=== PATIENT | female | born 1950 | race Caucasian/White ===

== ENCOUNTER 2018-07-02 13:50 | Inpatient (IN) | payer MEDICARE, OTHER ==
[~2018-07-02] VITALS: Ht 157.5 cm; Wt 87.3 kg
--- NOTE | 2018-07-02 14:16 | EKG ---
[address] [address] Test Date: 2018-07-02 Test Time: 14:03:06 Pat Name: ALLAN MORRISON Department: Room: Gender: F Company Secretary: : 1950 Requested By: XU ROSARIO Order Number: [id number] Reading MD: Karson Borjas MD Measurements Intervals [place] Rate: 81 P: 54 ID: [id number] QRS: 29 QRSD: 80 T: 53 QT: 380 QTc: 442 Interpretive Statements SR Electronically Signed On 07-05-2018 11:25:55 CDT by Karson Borjas MD
--- NOTE | 2018-07-02 14:21 | PHYS DOC ---
Past History Past Medical History: Cancer, COPD, Hypertension, Renal Disease Past Surgical History: No Surgical History Alcohol Use: None Drug Use: None Adult General Chief Complaint Chief Complaint: WEAKNESS/GENERALIZED HPI HPI Patient is a 67 year old female who brought in by EMS because of syncopal episode. Patient states she was going to stand up and then became dizzy and doesn't remember if she had the syncope but her brother states she had loss of consciousness for a short time. Patient denies chest pain, palpitation, focal neuro deficit, nausea and vomiting before after syncope. Patient denies history of syncope but states yesterday she had a near syncopal episode while she was leaving [facility]. Patient had history of metastatic ovarian cancer and currently taking chemotherapy with the last chemotherapy one week ago. Patient states she did go to [facility] and he did not do infusion because of elevation of kidney function. Patient complaining of shortness of breath after her syncopal episode that was like her usual condition and EMS reported that she was on 100% O2 sat on 3 L of home oxygen. Patient denies history of DVT and PE but currently taking Lovenox. Patient complaining of generalized weakness and dizziness without fever and chills. Review of Systems Review of Systems Constitutional: Denies fever or chills [] Eyes: Denies change in visual acuity, redness, or eye pain [] HENT: Denies nasal congestion or sore throat [] Respiratory: Denies cough or shortness of breath [] Cardiovascular: No additional information not addressed in HPI [] GI: Denies abdominal pain, nausea, vomiting, bloody stools or diarrhea [] : Denies dysuria or hematuria [] Musculoskeletal: Denies back pain or joint pain [] Integument: Denies rash or skin lesions [] Neurologic: Denies headache, focal weakness or sensory changes [] Endocrine: Denies polyuria or polydipsia [] All other systems were reviewed and found to be within normal limits, except as documented in this note. Allergies Allergies Allergies Coded Allergies Type Severity Reaction Last Updated Verified No Known Drug Allergies 07/02/18 No Physical Exam Physical Exam Constitutional: Well developed, well nourished, no acute distress, non-toxic appearance. [] HENT: Normocephalic, atraumatic, bilateral external ears normal, oropharynx moist, no oral exudates, nose normal. [] Eyes: PERRLA, EOMI, conjunctiva normal, no discharge. [] Neck: Normal range of motion, no tenderness, supple, no stridor. [] Cardiovascular:Heart rate regular rhythm, no murmur [] Lungs & Thorax: Bilateral breath sounds clear to auscultation [] Abdomen: Bowel sounds normal, soft, no tenderness, no masses, no pulsatile masses. [] Skin: Warm, dry, no erythema, no rash. [] Back: No tenderness, no CVA tenderness. [] Extremities: No tenderness, no cyanosis, no clubbing, ROM intact, bilateral lower extremity 2+ edema Neurologic: Alert and oriented X 3, normal motor function, normal sensory function, no focal deficits noted. [] Psychologic: Affect normal, judgement normal, mood normal. [] Current Patient Data Vital Signs Vital Signs Date Time Temp Pulse Resp B/P (MAP) Pulse Ox O2 Delivery O2 Flow Rate FiO2 07/02/18 14:04 97.8 83 18 100 Nasal Cannula 3.0 EKG EKG EKG interpreted by me. EKG at 14 or 2 showed normal sinus rhythm at rate of 81, no acute ST and T-wave abnormalities Radiology/Procedures Radiology/[place] [address] IMAGING REPORT Signed PATIENT: ALLAN MORRISON ACCOUNT: [id number] : 1950 LOCATION: ER AGE: 67 SEX: F EXAM STATUS: REG ER ORD. PHYSICIAN: XU ROSARIO MD REASON: syncope PROCEDURE: PORTABLE CHEST 1V Exam: AP portable chest History: Syncopal episode. Comparison: January 02, 2010. Findings: Patient is rotated. The heart and mediastinal structures are within normal limits for size. Lungs are without infiltrate. No pleural effusion or pneumothorax is identified. Right chest port and catheter have been placed with tip the catheter projecting at the atriocaval junction. Impression: 1. No acute cardiopulmonary process. Electronically signed by: Jhonny Corona MD (07/02/2018 2:32 PM) [place] [id number] DICTATED AND SIGNED BY: JHONNY CORONA MD DATE: 07/02/18 2220 CC: XU ROSARIO MD; PCP,NO ~ [address] [id number] IMAGING REPORT Signed PATIENT: ALLAN MORRISON ACCOUNT: [id number] : 1950 LOCATION: ER AGE: 67 SEX: F EXAM STATUS: REG ER ORD. PHYSICIAN: XU ROSARIO MD REASON: syncope PROCEDURE: CT HEAD WO CONTRAST CT HEAD WO CONTRAST Indication: SYNCOPAL EPISODE Exposure: One or more of the following individualized dose reduction techniques were utilized for this examination: 1. Automated exposure control 2. Adjustment of the mA and/or kV according to patient size 3. Use of iterative reconstruction technique. Comparison: None are available. Contrast: None FINDINGS: Posterior fossa is unremarkable. No evidence of acute intracranial hemorrhage or abnormal extra-axial fluid collection. No evidence of mass effect or midline shift. Mild prominence of ventricles and sulci compatible with mild atrophy. Mild arterial calcifications compatible with atherosclerotic disease. Subtle white matter hypodensity, is nonspecific but likely due to chronic small vessel ischemic disease. Visualized orbits are unremarkable. Only the upper most aspect of the maxillary sinuses are included, demonstrating opacification of the left maxillary sinus. No acute calvarial abnormality. Impression: 1. No evidence of acute intracranial hemorrhage or mass effect. 2. Partially visualized left maxillary sinus disease, nonspecific. 3. Chronic intracranial findings are detailed above. Electronically signed by: Jhonny Sevilla MD (07/02/2018 2:22 PM) [facility] Course & Med Decision Making Course & Med Decision Making Pertinent Labs and Imaging studies reviewed. (See chart for details) Evaluation of patient in ER showed 67-year-old female patient brought in by EMS because of syncopal episode and complaining of weakness and shortness of breath. Patient had 2+ lower extremity edema without neurovascular deficit. Labs showed elevation of lactic acid is 2.5 with white count of 2.0 without source of infection. Patient was started on Rocephin. IV fluid was not started because patient had a stable blood pressure. Dragon Disclaimer Dragon Disclaimer This electronic medical record was generated, in whole or in part, using a voice recognition dictation system. Departure Departure: Impression: Primary Impression: Syncope Additional Impressions: Sepsis Leukopenia Anemia Ovarian cancer Renal insufficiency CHF (congestive heart failure) Disposition: 09 ADMITTED INPATIENT (at 1544) Admitting Physician: Other (Dr. Fredrick Sherman accepted admission at 1542) Condition: GUARDED Referrals: PCP,NO (PCP) Problem Qualifiers XU ROSARIO MD Jul 02, 2018 14:21
--- NOTE | 2018-07-02 14:25 | RAD ---
CT HEAD WO CONTRAST Indication: SYNCOPAL EPISODE Exposure: One or more of the following individualized dose reduction techniques were utilized for this examination: 1. Automated exposure control 2. Adjustment of the mA and/or kV according to patient size 3. Use of iterative reconstruction technique. Comparison: None are available. Contrast: None FINDINGS: Posterior fossa is unremarkable. No evidence of acute intracranial hemorrhage or abnormal extra-axial fluid collection. No evidence of mass effect or midline shift. Mild prominence of ventricles and sulci compatible with mild atrophy. Mild arterial calcifications compatible with atherosclerotic disease. Subtle white matter hypodensity, is nonspecific but likely due to chronic small vessel ischemic disease. Visualized orbits are unremarkable. Only the upper most aspect of the maxillary sinuses are included, demonstrating opacification of the left maxillary sinus. No acute calvarial abnormality. Impression: 1. No evidence of acute intracranial hemorrhage or mass effect. 2. Partially visualized left maxillary sinus disease, nonspecific. 3. Chronic intracranial findings are detailed above. Electronically signed by: Jhonny Sevilla MD (07/02/2018 2:22 PM) [facility]
--- NOTE | 2018-07-02 14:35 | RAD ---
Exam: AP portable chest History: Syncopal episode. Comparison: January 02, 2010. Findings: Patient is rotated. The heart and mediastinal structures are within normal limits for size. Lungs are without infiltrate. No pleural effusion or pneumothorax is identified. Right chest port and catheter have been placed with tip the catheter projecting at the atriocaval junction. Impression: 1. No acute cardiopulmonary process. Electronically signed by: Jhonny Loaiza MD (07/02/2018 2:32 PM) [place] [id number]
[2018-07-02 14:58] LABS: BASO % 1 % (0-3); EOS % 1 % (0-3); HEMATOCRIT 29.2 % (36.0-47.0); HEMOGLOBIN 9.8 g/dL (12.0-15.5); LYMPH # 0.9 x10^3/uL (1.0-4.8); LYMPH % 41 % (24-48); MEAN CORPUSCULAR HEMOGLOBIN 33 pg (25-35); MEAN CORPUSCULAR HGB CONC 34 g/dL (31-37); MEAN CORPUSCULAR VOLUME 97 fL (79-100); MONO # 0.1 x10^3/uL (0.0-1.1); MONO % 6 % (0-9); NEUT # 1.1 x10^3uL (1.8-7.7); NEUT % 52 % (31-73); PLATELET COUNT 119 x10^3/uL (140-400); RED CELL DISTRIBUTION WIDTH 22.7 % (11.5-14.5); WHITE BLOOD COUNT 2.1 x10^3/uL (4.0-11.0)
[2018-07-02 15:32] LABS: % BANDS 4 % (0-9); % EOS 1 % (0-5); % LYMPHS 38 % (24-48); % MONOS 5 % (0-10); % SEGS 52 % (35-66)
[2018-07-02 15:33] LABS: HYPOCHROMIA SLIGHT; PLT ESTIMATE DECREASED (ADEQUATE)
[2018-07-02 15:34] LABS: MICROCYTOSIS SLIGHT; OVALOCYTES FEW; POLYCHROMASIA SLIGHT; TEAR DROP CELLS FEW; TOXIC GRANULATION PRESENT
[2018-07-02 15:38] LABS: ANISOCYTOSIS MOD
[2018-07-02 15:56] LABS: ALBUMIN 4.1 g/dL (3.4-5.0); ALBUMIN/GLOBULIN RATIO 1.1 (1.0-1.7); CALCIUM 9.2 mg/dL (8.5-10.1); CREATININE 1.5 mg/dL (0.6-1.0); GFR 34.5; POTASSIUM 4.3 mmol/L (3.5-5.1); TOTAL BILIRUBIN 0.5 mg/dL (0.2-1.0); TOTAL PROTEIN 7.9 g/dL (6.4-8.2)
[2018-07-02] MEDS ORDERED: cefTRIAXone SODIUM 1 GM VIAL IV ONE (15:59)
[2018-07-02] MEDS ORDERED: IV NORMAL SALINE 50ML 50 ML ONE (15:59)
[2018-07-02 16:15] LABS: BILIRUBIN,URINE NEG (NEG); CLARITY,URINE CLEAR; COLOR,URINE YELLOW; GLUCOSE,URINE NEG (NEG); NITRITE,URINE NEG (NEG); UROBILINOGEN,URINE 0.2 mg/dL (0.2 mg/dL)
[2018-07-02 16:16] LABS: BACTERIA,URINE 0 /HPF (0-FEW); HYALINE CASTS, URINE FEW /HPF; SQUAMOUS EPITHELIAL CELL,UR FEW /LPF; WBC,URINE OCC /HPF (0-4)
[2018-07-02 18:23] VITALS: BP 110/69
[2018-07-02] MEDS ORDERED: LISI10TA2 PO (18:53)
[2018-07-02] MEDS ORDERED: METO50TA6 PO (18:53)
[2018-07-02] MEDS ORDERED: FURO80TA72 PO (18:53)
[2018-07-02] MEDS ORDERED: IV NORMAL SALINE 1,000ML 1,000 ML IV SCH ×2 (19:00)
[2018-07-02 19:35] VITALS: BP 92/61
[2018-07-02] MEDS ORDERED: ACETAMINOPHEN 325 MG TABLET PO PRN (20:45)
[2018-07-02] MEDS ORDERED: PROCHLORPERAZINE 5 MG TABLET. PO PRN (21:15)
[2018-07-02] MEDS ORDERED: ONDANSETRON ODT 4 MG TAB.RAPDIS PO PRN (21:15)
[2018-07-02] MEDS: LISINOPRIL 10 MG TABLET PO SCH (21:46)
[2018-07-02] MEDS: TEMAZEPAM 15 MG CAPSULE PO SCH (21:46)
[2018-07-02] MEDS: METOPROLOL TART IMMED RELEASE 50 MG TABLET PO SCH (21:46)
[2018-07-02] MEDS: ENOXAPARIN ** NOTE DOSE ** SYRINGE SQ SCH (21:47)
[2018-07-02] MEDS: sulfaSALAzine 500 MG TABLET PO SCH (21:52)
[2018-07-03] VITALS (9 sets, daily range): BP systolic 89–120; BP diastolic 51–75
[2018-07-03 06:43] LABS: BASO % 1 % (0-3); EOS % 0 % (0-3); HEMATOCRIT 23.6 % (36.0-47.0); HEMOGLOBIN 7.9 g/dL (12.0-15.5); LYMPH # 0.7 x10^3/uL (1.0-4.8); LYMPH % 48 % (24-48); MEAN CORPUSCULAR HEMOGLOBIN 33 pg (25-35); MEAN CORPUSCULAR HGB CONC 34 g/dL (31-37); MEAN CORPUSCULAR VOLUME 98 fL (79-100); MONO # 0.1 x10^3/uL (0.0-1.1); MONO % 8 % (0-9); NEUT # 0.6 x10^3uL (1.8-7.7); NEUT % 43 % (31-73); PLATELET COUNT 94 x10^3/uL (140-400); RED BLOOD COUNT 2.41 x10^6/uL (3.50-5.40); RED CELL DISTRIBUTION WIDTH 22.5 % (11.5-14.5)
[2018-07-03 06:47] LABS: WHITE BLOOD COUNT 1.5 x10^3/uL (4.0-11.0)
[2018-07-03 06:50] LABS: ALBUMIN 2.9 g/dL (3.4-5.0); CALCIUM 8.1 mg/dL (8.5-10.1); GFR 55.1; POTASSIUM 4.5 mmol/L (3.5-5.1); TOTAL BILIRUBIN 0.2 mg/dL (0.2-1.0); TOTAL PROTEIN 5.7 g/dL (6.4-8.2)
[2018-07-03] MEDS: ASPIRIN 81 MG TAB.CHEW PO SCH (08:55)
[2018-07-03] MEDS: SPIRONOLACTONE 25 MG TABLET PO SCH (08:56)
[2018-07-03] MEDS: POLYETHYLENE GLYCOL 3350 17 GM PACKET. PO SCH (08:59)
[2018-07-03] MEDS: METOPROLOL TART IMMED RELEASE 50 MG TABLET PO SCH ×2 (08:59→22:27)
[2018-07-03] MEDS: ALLOPURINOL 100 MG TABLET. PO SCH (08:59)
[2018-07-03] MEDS ORDERED: DEXAMETHASONE 4 MG TABLET PO SCH (09:00)
[2018-07-03] MEDS: ENOXAPARIN ** NOTE DOSE ** SYRINGE SQ SCH ×2 (09:00→22:27)
[2018-07-03] MEDS: POTASSIUM CHLORIDE 20 MEQ TABLET.ER. PO SCH ×2 (09:03→17:25)
[2018-07-03] MEDS: sulfaSALAzine 500 MG TABLET PO SCH ×2 (09:14→22:12)
[2018-07-03] MEDS: LISINOPRIL 10 MG TABLET PO SCH ×2 (11:45→22:26)
[2018-07-03] MEDS: ISOSORBIDE MONONITRATE ER 30 MG TAB.ER.24H PO SCH (11:46)
[2018-07-03] MEDS: TEMAZEPAM 15 MG CAPSULE PO SCH (22:13)
--- NOTE | 2018-07-03 22:29 | PDOC1 ---
History and Physical Date of Admission: Date of Admission: 07/03/18 Chief Complaint: Chief Complain: syncope ProblemList: Anemia CHF (congestive heart failure) Leukopenia Ovarian cancer Renal insufficiency Sepsis Syncope Source: Source: Caregiver, Chart review, Patient HPI: HPI: 67/F to [facility] ED with reported syncope. Patient with reported history of metastatic ovarian CA follows with [facility] started new infusion therapy . States she had near-syncopal episode standing up from commode, and on Thursday reported witnessed syncope (patient's brother, not available) patient reportedly tried to stand up at home from armchair became dizzy and fell back into chair denies syncope but brother reportedly stated she was unresponsive few moments. No seizure activity/ incontinence/seizure activity/DORSEY/postictal, has metastatic ovarian cancer follows [facility] started "new infusion therapy" as well no other details. Scheduled for chemo Thursday not done due to low creatinine. Vague historian, follows Dr Velazco[facility] uncertain of recent testing denies recent echo. ED workup with normal EKG/CXR/CT head aside from mild left maxillary sinusitis she was admitted for further workup/observation. Patient reportedly sharpe-cultured, started on rocephin as WBC initially 2.1/Hb 9.8 /Plt 119, after NS hydration WBC 1.5/Hb 7.9/Plt 94 dilutional but still neutropenic and precautions initiated. UA neg, BUN 45/Cr 1.5 normalized after hydration, orthostatics negative. Albumin 2.9, and no thyroid history TSH 6.151. I find her sitting in bed watching TV no distress, continues to deny CP/ dyspnea but remains vague historian doesn't know what cancer treatments/cardiac workup. Past Medical History: Cardiovascular: HTN Pulmonary: COPD Heme/Onc: Cancer (metastatic ovarian) Renal/: Chronic renal insuff Social History: Smoke: No Alcohol: none Drugs: None Allergies: Allergies: Coded Allergies: No Known Drug Allergies (Unverified , 07/02/18) Current Medications: Current Medications: Current Medications Medications (Trade) Dose Ordered Sig/Lady Start Time Stop Time Status Last Admin Dose Admin Acetaminophen (Tylenol) 1,000 mg PRN TID PRN 07/02/18 20:45 Allopurinol (Zyloprim) 100 mg DAILY 07/03/18 09:00 07/03/18 08:59 100 MG Aspirin (Children'S Aspirin) 81 mg [id number] 07/03/18 08:00 07/03/18 08:55 81 MG Ceftriaxone Sodium 1 gm/ Sodium Chloride 50 ml @ 100 mls/hr 1X ONCE 07/02/18 15:45 07/02/18 16:14 DC 07/02/18 15:00 100 MLS/HR Ceftriaxone Sodium (Rocephin) 1 gm STK-MED ONCE 07/02/18 15:59 07/02/18 16:00 DC Dexamethasone (Decadron) 32 mg DAILY 07/03/18 09:00 Enoxaparin Sodium (Lovenox 100mg Syringe) 90 mg Q12HR 07/02/18 21:00 07/03/18 09:00 90 MG Isosorbide Mononitrate (Imdur) 60 mg DAILY 07/03/18 09:00 07/03/18 11:46 60 MG Lisinopril (Prinivil) 10 mg BID 07/02/18 21:00 07/03/18 11:45 10 MG Metoprolol Tartrate (Lopressor) 50 mg BID 07/02/18 21:00 07/03/18 08:59 50 MG Ondansetron HCl (Zofran Odt) 4 mg PRN Q8HRS PRN 07/02/18 21:15 Polyethylene Glycol (miraLAX) 17 gm DAILY 07/03/18 09:00 07/03/18 08:59 17 GM Potassium Chloride (Klor-Con) 20 meq BIDWMEALS 07/03/18 08:00 07/03/18 17:25 20 MEQ Prochlorperazine Maleate (Compazine) 10 mg PRN Q6HRS PRN 07/02/18 21:15 Sodium Chloride 1,000 ml @ 150 mls/hr Q6H40M 07/02/18 19:00 07/03/18 01:39 DC 07/03/18 00:32 150 MLS/HR Spironolactone (Aldactone) 25 mg DAILY 07/03/18 09:00 07/03/18 08:56 25 MG Sulfasalazine (Azulfidine) 500 mg BID 07/02/18 21:00 07/03/18 09:14 500 MG Temazepam (Restoril) 15 mg QHS 07/02/18 21:00 07/02/18 21:46 15 MG ROS: ROS: Constitutional: No fever or chills, + appropriate wt loss with chemo Eyes: No eye pain or blurred vision Skin: No rash or itching Cardiovascular: No chest pain, palpitations, dyspnea on exertion other than HPI/ PMH Respiratory: No cough or difficulty breathing Gastrointestinal: No nausea, vomiting, or abdominal pain Neurologic: No headaches or focal neurologic deficits Endocrine: No heat or cold intolerance Genitourinary: No incontinence or hematuria Musculoskeletal: No joint pain or swelling Lymphatics: No enlarged lymph nodes Psychiatric: No anxiety or depression PE: PE: Gen.: Alert, pleasant, no apparent distress HEENT: Normocephalic atraumatic, PERRLA EOMI, no scleral icterus, oral mucosa pink and moist Neck: Supple, no lymphadenopathy, nontender Cardiovascular: Normal S1 and S2 no murmurs Pulmonary: Lungs are clear bilaterally with good air movement no respiratory distress Abdomen: Soft nontender non-distended, bowel sounds present no masses Extremities: No clubbing, cyanosis or edema Neuro: Alert and oriented 3, cranial nerves II through XII grossly intact, no lateralizing neuro deficits Skin: Warm, dry Vitals: Vitals: Vital Signs Date Time Temp Pulse Resp B/P (MAP) Pulse Ox O2 Delivery O2 Flow Rate FiO2 07/03/18 20:50 88 120/72 (88) 99 Nasal Cannula 3.0 07/03/18 20:48 20 07/03/18 19:40 98.4 Labs: Labs: Laboratory Tests Test 07/02/18 14:39 07/02/18 15:30 07/02/18 15:40 07/02/18 18:20 White Blood Count 2.1 x10^3/uL (4.0-11.0) Red Blood Count 3.00 x10^6/uL (3.50-5.40) Hemoglobin 9.8 g/dL (12.0-15.5) Hematocrit 29.2 % (36.0-47.0) Mean Corpuscular Volume 97 fL (79-100) Mean Corpuscular Hemoglobin 33 pg (25-35) Mean Corpuscular Hemoglobin Concent 34 g/dL (31-37) Red Cell Distribution Width 22.7 % (11.5-14.5) Platelet Count 119 x10^3/uL (140-400) Neutrophils (%) (Auto) 52 % (31-73) Lymphocytes (%) (Auto) 41 % (24-48) Monocytes (%) (Auto) 6 % (0-9) Eosinophils (%) (Auto) 1 % (0-3) Basophils (%) (Auto) 1 % (0-3) Neutrophils # (Auto) 1.1 x10^3uL (1.8-7.7) Lymphocytes # (Auto) 0.9 x10^3/uL (1.0-4.8) Monocytes # (Auto) 0.1 x10^3/uL (0.0-1.1) Eosinophils # (Auto) 0.0 x10^3/uL (0.0-0.7) Basophils # (Auto) 0.0 x10^3/uL (0.0-0.2) Segmented Neutrophils % 52 % (35-66) Band Neutrophils % 4 % (0-9) Lymphocytes % 38 % (24-48) Monocytes % 5 % (0-10) Eosinophils % 1 % (0-5) Toxic Granulation Present Platelet Estimate Decreased (ADEQUATE) Polychromasia Slight Hypochromasia Slight Anisocytosis Mod Microcytosis Slight Tear Drop Cells Few Ovalocytes Few Lactic Acid Level 2.5 mmol/L (0.4-2.0) 1.0 mmol/L (0.4-2.0) Sodium Level 136 mmol/L (136-145) Potassium Level 4.3 mmol/L (3.5-5.1) Chloride Level 100 mmol/L (98-107) Carbon Dioxide Level 26 mmol/L (21-32) Anion Gap 10 (6-14) Blood Urea Nitrogen 45 mg/dL (7-20) Creatinine 1.5 mg/dL (0.6-1.0) Estimated GFR (Cockcroft-Gault) 34.5 BUN/Creatinine Ratio 30 (6-20) Glucose Level 95 mg/dL (70-99) Calcium Level 9.2 mg/dL (8.5-10.1) Total Bilirubin 0.5 mg/dL (0.2-1.0) Aspartate Amino Transf (AST/SGOT) 22 U/L (15-37) Alanine Aminotransferase (ALT/SGPT) 25 U/L (14-59) Alkaline Phosphatase 96 U/L (46-116) Troponin I Quantitative < 0.017 ng/mL (0-0.055) FQ-Ehj-Z-Type Natriuretic Peptide 238 pg/mL (0-124) Total Protein 7.9 g/dL (6.4-8.2) Albumin 4.1 g/dL (3.4-5.0) Albumin/Globulin Ratio 1.1 (1.0-1.7) Thyroid Stimulating Hormone (TSH) 6.151 uIU/mL (0.358-3.740) Urine Collection Type U cath Urine Color Yellow Urine Clarity Clear Urine pH 7.5 Urine Specific [place] 1.015 Urine Protein Trace (NEG-TRACE) Urine Glucose (UA) Neg mg/dL (NEG) Urine Ketones (Stick) Neg mg/dL (NEG) Urine Blood Mod (NEG) Urine Nitrite Neg (NEG) Urine Bilirubin Neg (NEG) Urine Urobilinogen Dipstick 0.2 mg/dL (0.2 mg/dL) Urine Leukocyte Esterase Neg (NEG) Urine RBC 3-5 /HPF (0-2) Urine WBC Occ /HPF (0-4) Urine Squamous Epithelial Cells Few /LPF Urine Bacteria 0 /HPF (0-FEW) Urine Hyaline Casts Few /HPF Urine Mucus Slight /LPF Test 07/03/18 06:20 White Blood Count 1.5 x10^3/uL (4.0-11.0) Red Blood Count 2.41 x10^6/uL (3.50-5.40) Hemoglobin 7.9 g/dL (12.0-15.5) Hematocrit 23.6 % (36.0-47.0) Mean Corpuscular Volume 98 fL (79-100) Mean Corpuscular Hemoglobin 33 pg (25-35) Mean Corpuscular Hemoglobin Concent 34 g/dL (31-37) Red Cell Distribution Width 22.5 % (11.5-14.5) Platelet Count 94 x10^3/uL (140-400) Neutrophils (%) (Auto) 43 % (31-73) Lymphocytes (%) (Auto) 48 % (24-48) Monocytes (%) (Auto) 8 % (0-9) Eosinophils (%) (Auto) 0 % (0-3) Basophils (%) (Auto) 1 % (0-3) Neutrophils # (Auto) 0.6 x10^3uL (1.8-7.7) Lymphocytes # (Auto) 0.7 x10^3/uL (1.0-4.8) Monocytes # (Auto) 0.1 x10^3/uL (0.0-1.1) Eosinophils # (Auto) 0.0 x10^3/uL (0.0-0.7) Basophils # (Auto) 0.0 x10^3/uL (0.0-0.2) Sodium Level 139 mmol/L (136-145) Potassium Level 4.5 mmol/L (3.5-5.1) Chloride Level 107 mmol/L (98-107) Carbon Dioxide Level 27 mmol/L (21-32) Anion Gap 5 (6-14) Blood Urea Nitrogen 35 mg/dL (7-20) Creatinine 1.0 mg/dL (0.6-1.0) Estimated GFR (Cockcroft-Gault) 55.1 BUN/Creatinine Ratio 35 (6-20) Glucose Level 90 mg/dL (70-99) Calcium Level 8.1 mg/dL (8.5-10.1) Total Bilirubin 0.2 mg/dL (0.2-1.0) Aspartate Amino Transf (AST/SGOT) 14 U/L (15-37) Alanine Aminotransferase (ALT/SGPT) 19 U/L (14-59) Alkaline Phosphatase 67 U/L (46-116) Total Protein 5.7 g/dL (6.4-8.2) Albumin 2.9 g/dL (3.4-5.0) Albumin/Globulin Ratio 1.0 (1.0-1.7) Micro: Microbiology 07/02/18 Blood Culture - Preliminary, Resulted NO GROWTH AFTER 1 DAY... VTE Prophylaxis: VTE Prophylaxis Devices: No VTE Pharmacological Prophylaxi: No (on OAC no new tx indicated) Assessment/Plan: A/P: Syncope: does not appear to be seizure by history, likely neurocardiogenic and records requested from [facility]. Cardiology team consulted/echo interim. TITO: resolved with hydration Pancytopenia: d/t ovarian cancer tx Neutropenia: neutropenic precautions, no obvious infxn, rocephin Hypothyroidism: antithyroid Ab, initiate synthroid Moderate malnutrition: encourage PO Continue rocephin and home meds. Orthostatic VS neg, echo pending. No CP/ dyspnea. Records are incomplete, I've requested H/P, recent cardiology testing , and oncology treatments from . Cardiology team consulted. Synthroid 100mcg /d initiated. ROSEMARIE ZAMORA DO Jul 03, 2018 22:29
[2018-07-04] MEDS: LEVOTHYROXINE 112 MCG TABLET PO SCH (06:17)
[2018-07-04 06:21] VITALS: BP 96/52
[2018-07-04 06:46] LABS: BASO % 1 % (0-3); EOS % 1 % (0-3); HEMATOCRIT 22.5 % (36.0-47.0); HEMOGLOBIN 7.6 g/dL (12.0-15.5); LYMPH # 0.8 x10^3/uL (1.0-4.8); LYMPH % 53 % (24-48); MEAN CORPUSCULAR HEMOGLOBIN 33 pg (25-35); MEAN CORPUSCULAR HGB CONC 34 g/dL (31-37); MEAN CORPUSCULAR VOLUME 99 fL (79-100); MONO # 0.2 x10^3/uL (0.0-1.1); MONO % 13 % (0-9); NEUT # 0.5 x10^3uL (1.8-7.7); NEUT % 33 % (31-73); PLATELET COUNT 95 x10^3/uL (140-400); RED BLOOD COUNT 2.28 x10^6/uL (3.50-5.40)
[2018-07-04 06:49] LABS: WHITE BLOOD COUNT 1.4 x10^3/uL (4.0-11.0)
[2018-07-04 06:55] LABS: ALBUMIN/GLOBULIN RATIO 1.1 (1.0-1.7); CALCIUM 8.3 mg/dL (8.5-10.1); CREATININE 0.9 mg/dL (0.6-1.0); GFR 62.3; POTASSIUM 4.9 mmol/L (3.5-5.1); TOTAL BILIRUBIN 0.3 mg/dL (0.2-1.0); TOTAL PROTEIN 5.8 g/dL (6.4-8.2)
[2018-07-04] MEDS: LISINOPRIL 10 MG TABLET PO SCH ×3 (09:00→21:38)
[2018-07-04] MEDS: METOPROLOL TART IMMED RELEASE 50 MG TABLET PO SCH ×2 (09:00→21:37)
[2018-07-04] MEDS: sulfaSALAzine 500 MG TABLET PO SCH ×2 (09:23→21:37)
[2018-07-04] MEDS: ENOXAPARIN ** NOTE DOSE ** SYRINGE SQ SCH ×2 (09:23→21:38)
[2018-07-04] MEDS: ASPIRIN 81 MG TAB.CHEW PO SCH (09:24)
[2018-07-04] MEDS: POTASSIUM CHLORIDE 20 MEQ TABLET.ER. PO SCH ×2 (09:26→16:47)
[2018-07-04] MEDS: ALLOPURINOL 100 MG TABLET. PO SCH (09:26)
[2018-07-04] MEDS: SPIRONOLACTONE 25 MG TABLET PO SCH (09:26)
[2018-07-04] MEDS: POLYETHYLENE GLYCOL 3350 17 GM PACKET. PO SCH (09:26)
[2018-07-04] MEDS: ISOSORBIDE MONONITRATE ER 30 MG TAB.ER.24H PO SCH (09:57)
[2018-07-04 11:00] VITALS: BP 112/73
--- NOTE | 2018-07-04 11:04 | PDOC2 ---
CONSULT Date of Admission DATE: 07/04/18 TIME: 11:04 Reason for Consult: Syncope Referring Physician: Dr. Sherman Chief Complaint Syncope Source: Chart review, Patient Problem List Problems Medical Problems: (1) Anemia Status: Acute (2) CHF (congestive heart failure) Status: Acute (3) Leukopenia Status: Acute (4) Ovarian cancer Status: Acute (5) Renal insufficiency Status: Acute (6) Sepsis Status: Acute (7) Syncope Status: Acute History of Present Illness 67-year-old female with history of metastatic ovarian cancer being treated with chemotherapy by oncology team apparently was standing up from armchair at home and had an episode of witnessed syncope. She had one episode of near- syncope in the recent past but denied any chest pain, orthopnea/PND, palpitations. Past Medical History Hypertension COPD Ovarian cancer Family History Negative for premature coronary artery disease Social History Patient denied any smoking alcohol or drug use. Current Medications Current Medications Ceftriaxone Sodium 1 gm/ Sodium Chloride 50 ml @ 100 mls/hr 1X ONCE IV Last administered on 07/02/18at 15:00; Start 07/02/18 at 15:45; Stop 07/02/18 at 16 :14; Status DC Sodium Chloride 50 ml @ As Directed STK-MED ONCE .ROUTE ; Start 07/02/18 at 15: 59; Stop 07/02/18 at 16:00; Status DC Ceftriaxone Sodium (Rocephin) 1 gm STK-MED ONCE IV ; Start 07/02/18 at 15:59; Stop 07/02/18 at 16:00; Status DC Sodium Chloride 1,000 ml @ 1,000 mls/hr Q1H IV Last administered on at 21:40; Start 07/02/18 at 19:00; Stop 07/02/18 at 19:59; Status DC Sodium Chloride 1,000 ml @ 150 mls/hr Q6H40M IV Last administered on at 00:32; Start 07/02/18 at 19:00; Stop 07/03/18 at 01:39; Status DC Acetaminophen (Tylenol) 1,000 mg PRN TID PRN PO PAIN; Start 07/02/18 at 20:45 Dexamethasone (Decadron) 32 mg DAILY PO ; Start 07/03/18 at 09:00; Stop at 07:00; Status DC Lisinopril (Prinivil) 10 mg BID PO Last administered on 07/04/18 09:00; Start 07/02/18 at 21:00 Allopurinol (Zyloprim) 100 mg DAILY PO Last administered on 07/04/18 09:26; Start 07/03/18 at 09:00 Aspirin (Children'S Aspirin) 81 mg DAILYWBKFT PO Last administered on 09:24; Start 07/03/18 at 08:00 Enoxaparin Sodium (Lovenox 100mg Syringe) 90 mg Q12HR SQ Last administered on 07/04/18 09:23; Start 07/02/18 at 21:00 Isosorbide Mononitrate (Imdur) 60 mg DAILY PO Last administered on 07/04/18 09:57; Start 07/03/18 at 09:00 Metoprolol Tartrate (Lopressor) 50 mg BID PO Last administered on 07/03/18 22 :27; Start 07/02/18 at 21:00 Ondansetron HCl (Zofran Odt) 4 mg PRN Q8HRS PRN PO NAUSEA/VOMITING; Start at 21:15 Polyethylene Glycol (miraLAX) 17 gm DAILY PO Last administered on 07/04/18 09 :26; Start 07/03/18 at 09:00 Potassium Chloride (Klor-Con) 20 meq BIDWMEALS PO Last administered on 09:26; Start 07/03/18 at 08:00 Prochlorperazine Maleate (Compazine) 10 mg PRN Q6HRS PRN PO NAUSEA/VOMITING; Start 07/02/18 at 21:15 Spironolactone (Aldactone) 25 mg DAILY PO Last administered on 07/04/18 09:26 ; Start 07/03/18 at 09:00 Sulfasalazine (Azulfidine) 500 mg BID PO Last administered on 07/04/18 09:23 ; Start 07/02/18 at 21:00 Temazepam (Restoril) 15 mg QHS PO Last administered on 07/03/18 22:13; Start 07/02/18 at 21:00 Levothyroxine Sodium (Synthroid) 112 mcg DAILY06 PO Last administered on 10/28/ 18at 06:17; Start 07/04/18 at 06:00 Active Scripts Active Reported Temazepam 15 Mg Capsule 1 Cap PO QHS Sulfazine Ec (Sulfasalazine) 500 Mg Tablet.dr 500 Mg PO BID Spironolactone 50 Mg Tablet 0.5 Tab PO DAILY Prochlorperazine Maleate 10 Mg Tablet 1 Tab PO PRN Q6HRS PRN Potassium Chloride 20 Meq Tablet.er 20 Meq PO BIDWMEALS Zofran (Ondansetron Hcl) 8 Mg Tablet 8 Mg PO PRN Q8HRS Miralax (Polyethylene Glycol 3350) 17 Gm Powd.pack 1 Packet PO DAILY Metoprolol Tartrate 50 Mg Tablet 1 Tab PO BID Lisinopril 10 Mg Tablet 1 Tab PO BID Lidocaine-Prilocaine Cream (Lidocaine/Prilocaine) 30 Gm Cream..g. 1 Keiko TP UD Isosorbide Mononitrate Er (Isosorbide Mononitrate) 60 Mg Tab.er.24h 1 Tab PO DAILY Lasix (Furosemide) 80 Mg Tablet 80 Mg PO BID94 Lovenox (Enoxaparin Sodium) 40 Mg/0.4 Ml Disp.syrin 0.92 Mg SQ BID Dexamethasone 4 Mg Tablet 8 Tab PO DAILY Aspirin Ec (Aspirin) 81 Mg Tablet.dr 1 Tab PO DAILY Allopurinol 100 Mg Tablet 1 Tab PO DAILY Tylenol (Acetaminophen) 325 Mg Tablet 1,000 Mg PO PRN TID PRN Allergies: Coded Allergies: No Known Drug Allergies (Unverified , 07/02/18) General: YES: Fatigue PSYCHOLOGICAL ROS: No: Hallucinations Eyes: No: Loss of vision HEENT: No: Epistaxis ENDOCRINE: No: Palpitations Respiratory: No: Hemoptysis, Shortness of breath Cardiovascular: No: Chest Pain Neurological: YES: Other (syncope); No: Seizures Skin: No: Rash General: Alert, Oriented X3 HEENT: Atraumatic, PERRLA Lungs: Clear to auscultation Heart: Regular rate Abdomen: Soft Extremities: No edema Psych/Mental Status: Mood NL VITALS Vital Signs Date Time Temp Pulse Resp B/P (MAP) Pulse Ox O2 Delivery O2 Flow Rate FiO2 07/04/18 09:57 73 112/73 07/04/18 08:00 Nasal Cannula 3.0 07/04/18 06:21 98.2 20 98 Labs Laboratory Tests Test 07/02/18 14:39 07/02/18 15:30 07/02/18 15:40 07/02/18 18:20 White Blood Count 2.1 x10^3/uL (4.0-11.0) Red Blood Count 3.00 x10^6/uL (3.50-5.40) Hemoglobin 9.8 g/dL (12.0-15.5) Hematocrit 29.2 % (36.0-47.0) Mean Corpuscular Volume 97 fL (79-100) Mean Corpuscular Hemoglobin 33 pg (25-35) Mean Corpuscular Hemoglobin Concent 34 g/dL (31-37) Red Cell Distribution Width 22.7 % (11.5-14.5) Platelet Count 119 x10^3/uL (140-400) Neutrophils (%) (Auto) 52 % (31-73) Lymphocytes (%) (Auto) 41 % (24-48) Monocytes (%) (Auto) 6 % (0-9) Eosinophils (%) (Auto) 1 % (0-3) Basophils (%) (Auto) 1 % (0-3) Neutrophils # (Auto) 1.1 x10^3uL (1.8-7.7) Lymphocytes # (Auto) 0.9 x10^3/uL (1.0-4.8) Monocytes # (Auto) 0.1 x10^3/uL (0.0-1.1) Eosinophils # (Auto) 0.0 x10^3/uL (0.0-0.7) Basophils # (Auto) 0.0 x10^3/uL (0.0-0.2) Segmented Neutrophils % 52 % (35-66) Band Neutrophils % 4 % (0-9) Lymphocytes % 38 % (24-48) Monocytes % 5 % (0-10) Eosinophils % 1 % (0-5) Toxic Granulation Present Platelet Estimate Decreased (ADEQUATE) Polychromasia Slight Hypochromasia Slight Anisocytosis Mod Microcytosis Slight Tear Drop Cells Few Ovalocytes Few Lactic Acid Level 2.5 mmol/L (0.4-2.0) 1.0 mmol/L (0.4-2.0) Sodium Level 136 mmol/L (136-145) Potassium Level 4.3 mmol/L (3.5-5.1) Chloride Level 100 mmol/L (98-107) Carbon Dioxide Level 26 mmol/L (21-32) Anion Gap 10 (6-14) Blood Urea Nitrogen 45 mg/dL (7-20) Creatinine 1.5 mg/dL (0.6-1.0) Estimated GFR (Cockcroft-Gault) 34.5 BUN/Creatinine Ratio 30 (6-20) Glucose Level 95 mg/dL (70-99) Calcium Level 9.2 mg/dL (8.5-10.1) Total Bilirubin 0.5 mg/dL (0.2-1.0) Aspartate Amino Transf (AST/SGOT) 22 U/L (15-37) Alanine Aminotransferase (ALT/SGPT) 25 U/L (14-59) Alkaline Phosphatase 96 U/L (46-116) Troponin I Quantitative < 0.017 ng/mL (0-0.055) [id number]-Type Natriuretic Peptide 238 pg/mL (0-124) Total Protein 7.9 g/dL (6.4-8.2) Albumin 4.1 g/dL (3.4-5.0) Albumin/Globulin Ratio 1.1 (1.0-1.7) Thyroid Stimulating Hormone (TSH) 6.151 uIU/mL (0.358-3.740) Urine Collection Type U cath Urine Color Yellow Urine Clarity Clear Urine pH 7.5 Urine Specific [place] 1.015 Urine Protein Trace (NEG-TRACE) Urine Glucose (UA) Neg mg/dL (NEG) Urine Ketones (Stick) Neg mg/dL (NEG) Urine Blood Mod (NEG) Urine Nitrite Neg (NEG) Urine Bilirubin Neg (NEG) Urine Urobilinogen Dipstick 0.2 mg/dL (0.2 mg/dL) Urine Leukocyte Esterase Neg (NEG) Urine RBC 3-5 /HPF (0-2) Urine WBC Occ /HPF (0-4) Urine Squamous Epithelial Cells Few /LPF Urine Bacteria 0 /HPF (0-FEW) Urine Hyaline Casts Few /HPF Urine Mucus Slight /LPF Test 07/03/18 06:20 07/04/18 06:27 White Blood Count 1.5 x10^3/uL (4.0-11.0) 1.4 x10^3/uL (4.0-11.0) Red Blood Count 2.41 x10^6/uL (3.50-5.40) 2.28 x10^6/uL (3.50-5.40) Hemoglobin 7.9 g/dL (12.0-15.5) 7.6 g/dL (12.0-15.5) Hematocrit 23.6 % (36.0-47.0) 22.5 % (36.0-47.0) Mean Corpuscular Volume 98 fL (79-100) 99 fL (79-100) Mean Corpuscular Hemoglobin 33 pg (25-35) 33 pg (25-35) Mean Corpuscular Hemoglobin Concent 34 g/dL (31-37) 34 g/dL (31-37) Red Cell Distribution Width 22.5 % (11.5-14.5) 22.0 % (11.5-14.5) Platelet Count 94 x10^3/uL (140-400) 95 x10^3/uL (140-400) Neutrophils (%) (Auto) 43 % (31-73) 33 % (31-73) Lymphocytes (%) (Auto) 48 % (24-48) 53 % (24-48) Monocytes (%) (Auto) 8 % (0-9) 13 % (0-9) Eosinophils (%) (Auto) 0 % (0-3) 1 % (0-3) Basophils (%) (Auto) 1 % (0-3) 1 % (0-3) Neutrophils # (Auto) 0.6 x10^3uL (1.8-7.7) 0.5 x10^3uL (1.8-7.7) Lymphocytes # (Auto) 0.7 x10^3/uL (1.0-4.8) 0.8 x10^3/uL (1.0-4.8) Monocytes # (Auto) 0.1 x10^3/uL (0.0-1.1) 0.2 x10^3/uL (0.0-1.1) Eosinophils # (Auto) 0.0 x10^3/uL (0.0-0.7) 0.0 x10^3/uL (0.0-0.7) Basophils # (Auto) 0.0 x10^3/uL (0.0-0.2) 0.0 x10^3/uL (0.0-0.2) Sodium Level 139 mmol/L (136-145) 138 mmol/L (136-145) Potassium Level 4.5 mmol/L (3.5-5.1) 4.9 mmol/L (3.5-5.1) Chloride Level 107 mmol/L (98-107) 107 mmol/L (98-107) Carbon Dioxide Level 27 mmol/L (21-32) 28 mmol/L (21-32) Anion Gap 5 (6-14) 3 (6-14) Blood Urea Nitrogen 35 mg/dL (7-20) 26 mg/dL (7-20) Creatinine 1.0 mg/dL (0.6-1.0) 0.9 mg/dL (0.6-1.0) Estimated GFR (Cockcroft-Gault) 55.1 62.3 BUN/Creatinine Ratio 35 (6-20) 29 (6-20) Glucose Level 90 mg/dL (70-99) 95 mg/dL (70-99) Calcium Level 8.1 mg/dL (8.5-10.1) 8.3 mg/dL (8.5-10.1) Total Bilirubin 0.2 mg/dL (0.2-1.0) 0.3 mg/dL (0.2-1.0) Aspartate Amino Transf (AST/SGOT) 14 U/L (15-37) 13 U/L (15-37) Alanine Aminotransferase (ALT/SGPT) 19 U/L (14-59) 17 U/L (14-59) Alkaline Phosphatase 67 U/L (46-116) 67 U/L (46-116) Total Protein 5.7 g/dL (6.4-8.2) 5.8 g/dL (6.4-8.2) Albumin 2.9 g/dL (3.4-5.0) 3.0 g/dL (3.4-5.0) Albumin/Globulin Ratio 1.0 (1.0-1.7) 1.1 (1.0-1.7) Assessment/Plan 1. Syncope most probably secondary to hypovolemia/dehydration. Continue intravenous fluids. Telemetry did not show any significant arrhythmias. Check 2- D echo to assess LV function and rule out any significant structural abnormalities. 2. Metastatic ovarian cancer currently undergoing chemotherapy presenting with pancytopenia. Continue neutropenic precautions. 3. Hypothyroidism: Continue levothyroxine. Thank you for your consultation. TAIWO AGARWAL MD Jul 04, 2018 11:04
[2018-07-04 12:06] LABS: THYROPEROXIDASE ANTIBODY 7 IU/mL (0-34)
[2018-07-04 15:00] VITALS: BP 119/69
[2018-07-04 20:03] VITALS: BP 124/67
--- NOTE | 2018-07-04 20:05 | PDOC ---
Progress Note. Subjective: I find patient sitting up awake watching television. Neutropenic precautions d/ t chemo from metastatic ovarian cancer treatment. No further syncope/near- syncope symptoms, patient hasn't been up or ambulatory much with her isolation. I encouaged her to be active in her room as she is able. She feels well, at her baseline. Still waiting for records from , and cardiology consultation pending as is echocardiogram I had ordered. No new gross abnormalities to list with VS or labs. Patient remains vague historian Objective: Vital Signs: Vital Signs Date Time Temp Pulse Resp B/P (MAP) Pulse Ox O2 Delivery O2 Flow Rate FiO2 07/04/18 15:00 97.9 87 119/69 (86) 3 Nasal Cannula 07/04/18 11:00 3.0 07/04/18 06:21 20 I & O: Intake and Output 07/04/18 07:00 Intake Total 2000 ml Output Total 750 ml Balance 1250 ml Intake Oral 2000 ml Output Urine Total 750 ml # Voids 1 Labs: Laboratory Tests Test 07/03/18 06:20 07/04/18 06:27 White Blood Count 1.5 x10^3/uL (4.0-11.0) 1.4 x10^3/uL (4.0-11.0) Red Blood Count 2.41 x10^6/uL (3.50-5.40) 2.28 x10^6/uL (3.50-5.40) Hemoglobin 7.9 g/dL (12.0-15.5) 7.6 g/dL (12.0-15.5) Hematocrit 23.6 % (36.0-47.0) 22.5 % (36.0-47.0) Mean Corpuscular Volume 98 fL (79-100) 99 fL (79-100) Mean Corpuscular Hemoglobin 33 pg (25-35) 33 pg (25-35) Mean Corpuscular Hemoglobin Concent 34 g/dL (31-37) 34 g/dL (31-37) Red Cell Distribution Width 22.5 % (11.5-14.5) 22.0 % (11.5-14.5) Platelet Count 94 x10^3/uL (140-400) 95 x10^3/uL (140-400) Neutrophils (%) (Auto) 43 % (31-73) 33 % (31-73) Lymphocytes (%) (Auto) 48 % (24-48) 53 % (24-48) Monocytes (%) (Auto) 8 % (0-9) 13 % (0-9) Eosinophils (%) (Auto) 0 % (0-3) 1 % (0-3) Basophils (%) (Auto) 1 % (0-3) 1 % (0-3) Neutrophils # (Auto) 0.6 x10^3uL (1.8-7.7) 0.5 x10^3uL (1.8-7.7) Lymphocytes # (Auto) 0.7 x10^3/uL (1.0-4.8) 0.8 x10^3/uL (1.0-4.8) Monocytes # (Auto) 0.1 x10^3/uL (0.0-1.1) 0.2 x10^3/uL (0.0-1.1) Eosinophils # (Auto) 0.0 x10^3/uL (0.0-0.7) 0.0 x10^3/uL (0.0-0.7) Basophils # (Auto) 0.0 x10^3/uL (0.0-0.2) 0.0 x10^3/uL (0.0-0.2) Sodium Level 139 mmol/L (136-145) 138 mmol/L (136-145) Potassium Level 4.5 mmol/L (3.5-5.1) 4.9 mmol/L (3.5-5.1) Chloride Level 107 mmol/L (98-107) 107 mmol/L (98-107) Carbon Dioxide Level 27 mmol/L (21-32) 28 mmol/L (21-32) Anion Gap 5 (6-14) 3 (6-14) Blood Urea Nitrogen 35 mg/dL (7-20) 26 mg/dL (7-20) Creatinine 1.0 mg/dL (0.6-1.0) 0.9 mg/dL (0.6-1.0) Estimated GFR (Cockcroft-Gault) 55.1 62.3 BUN/Creatinine Ratio 35 (6-20) 29 (6-20) Glucose Level 90 mg/dL (70-99) 95 mg/dL (70-99) Calcium Level 8.1 mg/dL (8.5-10.1) 8.3 mg/dL (8.5-10.1) Total Bilirubin 0.2 mg/dL (0.2-1.0) 0.3 mg/dL (0.2-1.0) Aspartate Amino Transf (AST/SGOT) 14 U/L (15-37) 13 U/L (15-37) Alanine Aminotransferase (ALT/SGPT) 19 U/L (14-59) 17 U/L (14-59) Alkaline Phosphatase 67 U/L (46-116) 67 U/L (46-116) Total Protein 5.7 g/dL (6.4-8.2) 5.8 g/dL (6.4-8.2) Albumin 2.9 g/dL (3.4-5.0) 3.0 g/dL (3.4-5.0) Albumin/Globulin Ratio 1.0 (1.0-1.7) 1.1 (1.0-1.7) Thyroperoxidase Antibody 7 IU/mL (0-34) Physical Exam: Gen.: Alert, pleasant, no apparent distress HEENT: Normocephalic atraumatic skullcap in place, PERRLA EOMI, no scleral icterus, oral mucosa pink and moist Neck: Supple, no lymphadenopathy, nontender Cardiovascular: Normal S1 and S2 no murmurs Pulmonary: Lungs are clear bilaterally with good air movement no respiratory distress Abdomen: Soft nontender non-distended, bowel sounds present no masses Extremities: No clubbing, cyanosis Neuro: Alert and oriented 3, cranial nerves II through XII grossly intact, no lateralizing neuro deficits Skin: Warm, dry Assessment: Syncope: does not appear to be seizure by history, likely neurocardiogenic and records requested from . Cardiology team consulted/echo interim. TITO: resolved with hydration Pancytopenia: d/t ovarian cancer tx Neutropenia: neutropenic precautions, no obvious infxn, rocephin Hypothyroidism: antithyroid Ab, initiate synthroid Moderate malnutrition: encourage PO Continue rocephin and home meds. Orthostatic VS neg, echo pending. No CP/ dyspnea. Records are incomplete, I've requested H/P, recent cardiology testing , and oncology treatments from not yet received. Cardiology team consulted. Synthroid 100mcg/d initiated. ROSEMARIE ZAMORA DO Jul 04, 2018 20:05
[2018-07-04] MEDS: TEMAZEPAM 15 MG CAPSULE PO SCH (21:37)
[2018-07-04 23:23] VITALS: BP 104/53
[2018-07-05] MEDS: LEVOTHYROXINE 112 MCG TABLET PO SCH ×2 (05:44→22:03)
[2018-07-05 05:53] VITALS: BP 101/63
[2018-07-05 06:14] LABS: BASO % 1 % (0-3); EOS % 1 % (0-3); HEMOGLOBIN 7.4 g/dL (12.0-15.5); LYMPH # 0.6 x10^3/uL (1.0-4.8); LYMPH % 48 % (24-48); MEAN CORPUSCULAR HEMOGLOBIN 33 pg (25-35); MEAN CORPUSCULAR HGB CONC 34 g/dL (31-37); MEAN CORPUSCULAR VOLUME 99 fL (79-100); MONO # 0.3 x10^3/uL (0.0-1.1); MONO % 20 % (0-9); NEUT # 0.4 x10^3uL (1.8-7.7); NEUT % 30 % (31-73); PLATELET COUNT 90 x10^3/uL (140-400); RED BLOOD COUNT 2.22 x10^6/uL (3.50-5.40); RED CELL DISTRIBUTION WIDTH 22.2 % (11.5-14.5)
[2018-07-05 06:19] LABS: WHITE BLOOD COUNT 1.2 x10^3/uL (4.0-11.0)
[2018-07-05 06:23] LABS: ALBUMIN 2.9 g/dL (3.4-5.0); ALBUMIN/GLOBULIN RATIO 0.9 (1.0-1.7); CALCIUM 8.5 mg/dL (8.5-10.1); CREATININE 0.8 mg/dL (0.6-1.0); GFR 71.3; POTASSIUM 4.8 mmol/L (3.5-5.1); TOTAL BILIRUBIN 0.3 mg/dL (0.2-1.0)
[2018-07-05] MEDS: ISOSORBIDE MONONITRATE ER 30 MG TAB.ER.24H PO SCH (08:15)
[2018-07-05] MEDS: ENOXAPARIN ** NOTE DOSE ** SYRINGE SQ SCH ×2 (08:15→22:03)
[2018-07-05] MEDS: METOPROLOL TART IMMED RELEASE 50 MG TABLET PO SCH ×2 (08:16→22:02)
[2018-07-05] MEDS: ALLOPURINOL 100 MG TABLET. PO SCH (08:16)
[2018-07-05] MEDS: ASPIRIN 81 MG TAB.CHEW PO SCH (08:17)
[2018-07-05] MEDS: LISINOPRIL 10 MG TABLET PO SCH ×2 (08:17→22:03)
[2018-07-05] MEDS: sulfaSALAzine 500 MG TABLET PO SCH ×2 (08:18→22:03)
[2018-07-05] MEDS: POTASSIUM CHLORIDE 20 MEQ TABLET.ER. PO SCH ×2 (08:18→17:00)
[2018-07-05] MEDS: SPIRONOLACTONE 25 MG TABLET PO SCH (08:22)
[2018-07-05 08:46] LABS: % EOS 1 % (0-5); % LYMPHS 46 % (24-48); % MONOS 16 % (0-10); % SEGS 37 % (35-66)
[2018-07-05 08:47] LABS: PLT ESTIMATE DECREASED (ADEQUATE); POLYCHROMASIA MOD
[2018-07-05 08:48] LABS: ANISOCYTOSIS MOD; POIKILOCYTOSIS SLIGHT
[2018-07-05 08:49] LABS: OVALOCYTES OCC
[2018-07-05 08:51] LABS: TOXIC GRANULATION PRESENT
[2018-07-05] MEDS: POLYETHYLENE GLYCOL 3350 17 GM PACKET. PO SCH (09:00)
--- NOTE | 2018-07-05 09:41 | PDOC ---
PROGRESS NOTES Diagnosis Problem Problems Medical Problems: (1) Anemia Status: Acute (2) CHF (congestive heart failure) Status: Acute (3) Leukopenia Status: Acute (4) Ovarian cancer Status: Acute (5) Renal insufficiency Status: Acute (6) Sepsis Status: Acute (7) Syncope Status: Acute Assessment Problems Medical Problems: (1) Anemia Status: Acute (2) CHF (congestive heart failure) Status: Acute (3) Leukopenia Status: Acute (4) Ovarian cancer Status: Acute (5) Renal insufficiency Status: Acute (6) Sepsis Status: Acute (7) Syncope Status: Acute 1. syncope likely secondary to hypovolemia and orthostatic hypotension. Currently off lasix , s/p IV fluids. Repeat orthostatic pressures. Appers euvolemic at this time. Monitor carefully due to her history of diastolic heart failure. compression hose if venous duplex negative. 2. recent PE - on lovenox. check venous duplex and limited echo to re- evaluate RV dilatation. 3. chronic diastolic heart failure - compensated currently 4. hypertensive heart disease with mild LVH and mild PHTN 5. chronic respiratory insufficiency on home o2 - stable 6. mild CAD with recent negative MPI - angina free 7. metastatic CA - chemo with [facility] Subjective feeling better, no dyspnea, no palpitations, no lightheadedness, reports edema at baseline Objective Vital Signs Date Time Temp Pulse Resp B/P (MAP) Pulse Ox O2 Delivery O2 Flow Rate FiO2 07/05/18 08:17 78 101/63 07/05/18 05:53 97.8 20 97 Nasal Cannula 3.0 Intake and Output 07/05/18 07:00 Intake Total 220 ml Output Total 1650 ml Balance -1430 ml Intake Oral 220 ml Output Urine Total 1650 ml # Bowel Movements 1 Abdomen: Normal bowel sounds, No tenderness Heart: Normal S1, Normal S2, Other (no gallops, clicks or rubs) Extremities: Other (mild edema bilateral lower extremities reportedly baseline) General: Alert, Oriented X3, Cooperative, No acute distress HEENT: Atraumatic, EOMI, Other (No HJR) Neuro: Normal speech, Strength at 5/5 X4 ext, Cranial nerves 3-12 NL Psych/Mental Status: Mental status NL Review of Relevant I have reviewed the following items adam (where applicable) has been applied. Labs Laboratory Tests Test 07/04/18 06:07/05/18 05:59 White Blood Count 1.4 x10^3/uL (4.0-11.0) 1.2 x10^3/uL (4.0-11.0) Red Blood Count 2.28 x10^6/uL (3.50-5.40) 2.22 x10^6/uL (3.50-5.40) Hemoglobin 7.6 g/dL (12.0-15.5) 7.4 g/dL (12.0-15.5) Hematocrit 22.5 % (36.0-47.0) 22.0 % (36.0-47.0) Mean Corpuscular Volume 99 fL (79-100) 99 fL (79-100) Mean Corpuscular Hemoglobin 33 pg (25-35) 33 pg (25-35) Mean Corpuscular Hemoglobin Concent 34 g/dL (31-37) 34 g/dL (31-37) Red Cell Distribution Width 22.0 % (11.5-14.5) 22.2 % (11.5-14.5) Platelet Count 95 x10^3/uL (140-400) 90 x10^3/uL (140-400) Neutrophils (%) (Auto) 33 % (31-73) 30 % (31-73) Lymphocytes (%) (Auto) 53 % (24-48) 48 % (24-48) Monocytes (%) (Auto) 13 % (0-9) 20 % (0-9) Eosinophils (%) (Auto) 1 % (0-3) 1 % (0-3) Basophils (%) (Auto) 1 % (0-3) 1 % (0-3) Neutrophils # (Auto) 0.5 x10^3uL (1.8-7.7) 0.4 x10^3uL (1.8-7.7) Lymphocytes # (Auto) 0.8 x10^3/uL (1.0-4.8) 0.6 x10^3/uL (1.0-4.8) Monocytes # (Auto) 0.2 x10^3/uL (0.0-1.1) 0.3 x10^3/uL (0.0-1.1) Eosinophils # (Auto) 0.0 x10^3/uL (0.0-0.7) 0.0 x10^3/uL (0.0-0.7) Basophils # (Auto) 0.0 x10^3/uL (0.0-0.2) 0.0 x10^3/uL (0.0-0.2) Sodium Level 138 mmol/L (136-145) 138 mmol/L (136-145) Potassium Level 4.9 mmol/L (3.5-5.1) 4.8 mmol/L (3.5-5.1) Chloride Level 107 mmol/L (98-107) 106 mmol/L (98-107) Carbon Dioxide Level 28 mmol/L (21-32) 27 mmol/L (21-32) Anion Gap 3 (6-14) 5 (6-14) Blood Urea Nitrogen 26 mg/dL (7-20) 19 mg/dL (7-20) Creatinine 0.9 mg/dL (0.6-1.0) 0.8 mg/dL (0.6-1.0) Estimated GFR (Cockcroft-Gault) 62.3 71.3 BUN/Creatinine Ratio 29 (6-20) 24 (6-20) Glucose Level 95 mg/dL (70-99) 94 mg/dL (70-99) Calcium Level 8.3 mg/dL (8.5-10.1) 8.5 mg/dL (8.5-10.1) Total Bilirubin 0.3 mg/dL (0.2-1.0) 0.3 mg/dL (0.2-1.0) Aspartate Amino Transf (AST/SGOT) 13 U/L (15-37) 14 U/L (15-37) Alanine Aminotransferase (ALT/SGPT) 17 U/L (14-59) 16 U/L (14-59) Alkaline Phosphatase 67 U/L (46-116) 71 U/L (46-116) Total Protein 5.8 g/dL (6.4-8.2) 6.0 g/dL (6.4-8.2) Albumin 3.0 g/dL (3.4-5.0) 2.9 g/dL (3.4-5.0) Albumin/Globulin Ratio 1.1 (1.0-1.7) 0.9 (1.0-1.7) Thyroperoxidase Antibody 7 IU/mL (0-34) Segmented Neutrophils % 37 % (35-66) Lymphocytes % 46 % (24-48) Monocytes % 16 % (0-10) Eosinophils % 1 % (0-5) Toxic Granulation Present Platelet Estimate Decreased (ADEQUATE) Large Platelets Occ Polychromasia Mod Poikilocytosis Slight Basophilic Stippling Present Anisocytosis Mod Macrocytosis Present Ovalocytes Occ Microbiology 07/02/18 Blood Culture - Preliminary, Resulted NO GROWTH AFTER 2 DAYS... Medications Current Medications Ceftriaxone Sodium 1 gm/ Sodium Chloride 50 ml @ 100 mls/hr 1X ONCE IV Last administered on 07/02/18at 15:00; Start 07/02/18 at 15:45; Stop 07/02/18 at 16 :14; Status DC Sodium Chloride 50 ml @ As Directed STK-MED ONCE .ROUTE ; Start 07/02/18 at 15: 59; Stop 07/02/18 at 16:00; Status DC Ceftriaxone Sodium (Rocephin) 1 gm STK-MED ONCE IV ; Start 07/02/18 at 15:59; Stop 07/02/18 at 16:00; Status DC Sodium Chloride 1,000 ml @ 1,000 mls/hr Q1H IV Last administered on at 21:40; Start 07/02/18 at 19:00; Stop 07/02/18 at 19:59; Status DC Sodium Chloride 1,000 ml @ 150 mls/hr Q6H40M IV Last administered on at 00:32; Start 07/02/18 at 19:00; Stop 07/03/18 at 01:39; Status DC Acetaminophen (Tylenol) 1,000 mg PRN TID PRN PO PAIN; Start 07/02/18 at 20:45 Dexamethasone (Decadron) 32 mg DAILY PO ; Start 07/03/18 at 09:00; Stop at 07:00; Status DC Lisinopril (Prinivil) 10 mg BID PO Last administered on 07/05/18at 08:17; Start 07/02/18 at 21:00 Allopurinol (Zyloprim) 100 mg DAILY PO Last administered on 07/05/18at 08:16; Start 07/03/18 at 09:00 Aspirin (Children'S Aspirin) 81 mg DAILYWBKFT PO Last administered on 08:17; Start 07/03/18 at 08:00 Enoxaparin Sodium (Lovenox 100mg Syringe) 90 mg Q12HR SQ Last administered on 07/05/18 08:15; Start 07/02/18 at 21:00 Isosorbide Mononitrate (Imdur) 60 mg DAILY PO Last administered on 07/05/18 08:15; Start 07/03/18 at 09:00 Metoprolol Tartrate (Lopressor) 50 mg BID PO Last administered on 07/05/18 08 :16; Start 07/02/18 at 21:00 Ondansetron HCl (Zofran Odt) 4 mg PRN Q8HRS PRN PO NAUSEA/VOMITING; Start at 21:15 Polyethylene Glycol (miraLAX) 17 gm DAILY PO Last administered on 07/05/18 09 :00; Start 07/03/18 at 09:00 Potassium Chloride (Klor-Con) 20 meq BIDWMEALS PO Last administered on 08:18; Start 07/03/18 at 08:00 Prochlorperazine Maleate (Compazine) 10 mg PRN Q6HRS PRN PO NAUSEA/VOMITING; Start 07/02/18 at 21:15 Spironolactone (Aldactone) 25 mg DAILY PO Last administered on 07/05/18 08:22 ; Start 07/03/18 at 09:00 Sulfasalazine (Azulfidine) 500 mg BID PO Last administered on 07/05/18 08:18 ; Start 07/02/18 at 21:00 Temazepam (Restoril) 15 mg QHS PO Last administered on 07/04/18at 21:37; Start 07/02/18 at 21:00 Levothyroxine Sodium (Synthroid) 112 mcg DAILY06 PO Last administered on at 05:44; Start 07/04/18 at 06:00 Active Scripts Active Reported Temazepam 15 Mg Capsule 1 Cap PO QHS Sulfazine Ec (Sulfasalazine) 500 Mg Tablet.dr 500 Mg PO BID Spironolactone 50 Mg Tablet 0.5 Tab PO DAILY Prochlorperazine Maleate 10 Mg Tablet 1 Tab PO PRN Q6HRS PRN Potassium Chloride 20 Meq Tablet.er 20 Meq PO BIDWMEALS Zofran (Ondansetron Hcl) 8 Mg Tablet 8 Mg PO PRN Q8HRS Miralax (Polyethylene Glycol 3350) 17 Gm Powd.pack 1 Packet PO DAILY Metoprolol Tartrate 50 Mg Tablet 1 Tab PO BID Lisinopril 10 Mg Tablet 1 Tab PO BID Lidocaine-Prilocaine Cream (Lidocaine/Prilocaine) 30 Gm Cream..g. 1 Keiko TP UD Isosorbide Mononitrate Er (Isosorbide Mononitrate) 60 Mg Tab.er.24h 1 Tab PO DAILY Lasix (Furosemide) 80 Mg Tablet 80 Mg PO BID94 Lovenox (Enoxaparin Sodium) 40 Mg/0.4 Ml Disp.syrin 0.92 Mg SQ BID Dexamethasone 4 Mg Tablet 8 Tab PO DAILY Aspirin Ec (Aspirin) 81 Mg Tablet.dr 1 Tab PO DAILY Allopurinol 100 Mg Tablet 1 Tab PO DAILY Tylenol (Acetaminophen) 325 Mg Tablet 1,000 Mg PO PRN TID PRN Vitals/I & O Vital Sign - Last 24 Hours 07/04/18 07/04/18 07/04/18 07/04/18 09:57 11:00 15:00 20:00 Temp 98.2 97.9 Pulse 73 73 87 B/P (MAP) 112/73 112/73 (86) 119/69 (86) Pulse Ox 98 3 O2 Delivery Nasal Cannula Nasal Cannula Nasal Cannula O2 Flow Rate 3.0 3.0 07/04/18 07/04/18 07/04/18 07/04/18 20:03 21:37 21:38 23:23 Temp 97.7 97.8 Pulse 86 86 86 84 Resp 22 B/P (MAP) 124/67 (86) 124/67 124/67 104/53 (70) Pulse Ox 96 96 O2 Delivery Nasal Cannula Nasal Cannula O2 Flow Rate 3.0 3.0 07/05/18 07/05/18 07/05/18 07/05/18 05:53 08:15 08:16 08:17 Temp 97.8 Pulse 78 78 78 78 Resp 20 B/P (MAP) 101/63 (76) 101/63 101/63 101/63 Pulse Ox 97 O2 Delivery Nasal Cannula O2 Flow Rate 3.0 Intake and Output 07/04/18 07/04/18 07/05/18 15:00 23:00 07:00 Intake Total 150 ml 70 ml Output Total 900 ml 500 ml 250 ml Balance -900 ml -350 ml -180 ml ALINA FREITAS [facility] Jul 05, 2018 09:41
[2018-07-05 12:20] VITALS: BP 110/72
--- NOTE | 2018-07-05 14:06 | CARD ---
MR#: [id number] Date of Study: 07/05/2018 Ordering Physician: ALINA FREITAS, Referring Physician: ROSEMARIE ZAMORA Tech: Yaneth Haq RDCS APPROVED REPORT EXAM: Limited two-dimensional echocardiogram with Doppler and color Doppler. Other Information Quality : Good INDICATION Evaluate Right Heart Tricuspid Valve TR P. [id number] TR Peak Gr.[id number] LEFT VENTRICLE The left ventricular systolic function is normal. The Ejection Fraction is 60-65%. There is normal LV segmental wall motion. RIGHT VENTRICLE The right ventricle is normal size. The right ventricular systolic function is normal. ATRIA The left atrium size is normal. The right atrium size is normal. TRICUSPID VALVE The tricuspid valve is normal in structure and function. Doppler and Color Flow revealed trace to mil d tricuspid regurgitation. There is moderate pulmonary hypertension. The PA pressure was estimated at 46 mmHg. There is no tricuspid valve stenosis. PERICARDIAL EFFUSION There is no evidence of significant pericardial effusion. Critical Notification Critical Value: No <Conclusion> Limited 2D echo. Aortic and mitral valves not interrogated. The left ventricular systolic function is normal. The Ejection Fraction is 60-65%. There is normal LV segmental wall motion. Trace to mild tricuspid regurgitation. The PA pressure was estimated at 46 mmHg. There is no evidence of significant pericardial effusion. Signed by : Alphonse Moreno, Electronically Approved : 07/05/2018 14:05:46
[2018-07-05 15:00] VITALS: BP_SYST 112; BP_SYST 95; BP_DIAS 60; BP_DIAS 63; BP_DIAS 69
[2018-07-05 20:00] VITALS: BP 120/72
[2018-07-05] MEDS ORDERED: TBO-FILGRASTIM 480 MCG/0.8 ML SYRINGE. SQ ONE (21:00)
[2018-07-05] MEDS: TEMAZEPAM 15 MG CAPSULE PO SCH (22:03)
[2018-07-05 23:00] VITALS: BP 123/71
[2018-07-06] VITALS (7 sets, daily range): BP systolic 92–138; BP diastolic 51–81
--- NOTE | 2018-07-06 01:49 | PN ---
DATE: 07/05/2018 NO DICTATION. ALFRED BAEZA MD DR: ALLAN/que JOB#: [id number] / [id number]
--- NOTE | 2018-07-06 06:27 | PN ---
DATE: 07/05/2018 SUBJECTIVE: The patient is resting slightly propped up in bed, in no apparent respiratory distress. On questioning her, she denied any complaint, in particular denied any further episodes of syncope since she was admitted to the hospital on 07/02/2018. She actually managed to get up on her own to the bathroom and back. Denied any chest pain, shortness of breath, orthopnea or paroxysmal nocturnal dyspnea. Denied any cough, phlegm or hemoptysis. She apparently was seen at [facility], where she was seen by Dr. Velazco, who advised her to increase her Lasix to 80 mg twice a day before coming to the [facility], although on her visit on 07/02/2018, no infusions were done as her creatinine has risen from 0.9 to 1.3. PHYSICAL EXAMINATION: GENERAL: When I examined her today, she looked pale, no jaundice, cyanosis, or thyromegaly. No jugular venous distension. No limb edema. VITAL SIGNS: Her heart rate was 78, blood pressure was 101/63, temperature was 97.8, respiratory rate 20, and oxygen saturation was 97% on 3 liters of oxygen by nasal cannula. HEAD, EYES, EARS, NOSE AND THROAT: Showed normocephalic, atraumatic. NECK: Supple. HEART: Showed normal first and second heart sounds with no gallop, rub or murmur. CHEST: Clear to auscultation. No crepitation or rhonchi. ABDOMEN: Distended, soft, and nontender. No guarding or rigidity. No organomegaly. Hernial orifice intact. Bowel sounds normal. NEUROLOGIC: She was awake, alert, and responding appropriately. Cranial nerves intact. She moves extremities without difficulty. She apparently is able to ambulate with a walker on her own without difficulty. Her intake over the last 24 hours was 2000, output was 750. LABORATORY DATA: Her lab work as of this morning showed that her white cell count is down further to 1.2, hemoglobin was 7.4, hematocrit 22, MCV 99 and platelet count of 90,000. Her chemistry, however, showed her serum sodium was 138, potassium 4.8, chloride 105, bicarbonate 27, anion gap of 5, BUN of 19, creatinine 0.8, estimated GFR was 71 mL per minute. Her glucose was 94, calcium was 8.5. Total bilirubin, AST, ALT, alkaline phosphatase were normal. Total protein was 6, albumin was 2.9. Her TSH was 6.151. Her blood cultures are so far negative and showed no growth over the last 2 days. Her weight is up to 197, the ideal weight of 180 to 185 pounds according to the Cardiology recommendation. ASSESSMENT: 1. Syncope, likely because of the hypovolemia. She received about 500 mL normal saline and the patient has had no further episode of syncope. 2. Acute kidney injury, resolved. Her BUN came down from 45 to 19 and her creatinine came down from 1.5 to 0.8 mg/dL. The patient has pancytopenia. Apparently, she has received a course of Taxol and carboplatin chemotherapy for stage 4 ovarian cancer and neutropenia. The patient is actually neutropenic and her white cell count actually is drifting down further when it came to 2.1 and now it is 1.2. She has also anemia and thrombocytopenia; however, the patient has no fever. She has hypothyroidism for which she is now on Synthroid. She has also severe protein-calorie malnutrition with serum albumin is only 2.9 g/dL. PLAN: My plan is to consult the oncologist to see whether the Neulasta ____. We will repeat all her labs tomorrow and decide the further management accordingly. ALFRED BAEZA MD DR: ALLAN/que JOB#: [id number] / [id number]
[2018-07-06] MEDS: POTASSIUM CHLORIDE 20 MEQ TABLET.ER. PO SCH ×2 (08:00→17:00)
--- NOTE | 2018-07-06 08:26 | PDOC ---
ZENAALINA J LEAD ATHLETE 07/06/18 0826: PROGRESS NOTES Diagnosis Problem Problems Medical Problems: (1) Anemia Status: Acute (2) CHF (congestive heart failure) Status: Acute (3) Leukopenia Status: Acute (4) Ovarian cancer Status: Acute (5) Renal insufficiency Status: Acute (6) Sepsis Status: Acute (7) Syncope Status: Acute Assessment Problems Medical Problems: (1) Anemia Status: Acute (2) CHF (congestive heart failure) Status: Acute (3) Leukopenia Status: Acute (4) Ovarian cancer Status: Acute (5) Renal insufficiency Status: Acute (6) Sepsis Status: Acute (7) Syncope Status: Acute 1. syncope likely secondary to hypovolemia and orthostatic hypotension. Currently off lasix , s/p IV fluids. She remains mildly orthostatic. Will decrease lisinopril. Monitor carefully for volume overload due to her history of diastolic heart failure. compression hose if venous duplex negative. 2. recent PE - on lovenox. RV WNL. venous duplex neg. 3. chronic diastolic heart failure - remains compensated currently but will likely need low dose lasix on discharge. 4. hypertensive heart disease with mild LVH and mild PHTN 5. chronic respiratory insufficiency on home o2 - stable 6. mild CAD with recent negative MPI - angina free 7. metastatic CA - chemo with [facility] Subjective no complaints, no cp, no dyspnea, no lightheadedness. Objective Vital Signs Date Time Temp Pulse Resp B/P (MAP) Pulse Ox O2 Delivery O2 Flow Rate FiO2 07/06/18 05:00 98.0 79 17 92/52 (65) 98 Nasal Cannula 3.0 Intake and Output 07/06/18 07:00 Intake Total 1940 ml Output Total 950 ml Balance 990 ml Intake Oral 1940 ml Output Urine Total 950 ml Physical Exam Abdomen: Normal bowel sounds, No tenderness Lungs: few scattered basilar crackles. Heart: Normal S1, Normal S2, Other (no gallops, clicks or rubs) Extremities: Other (mild edema bilateral lower extremities reportedly baseline) General: Alert, Oriented X3, Cooperative, No acute distress HEENT: Atraumatic, EOMI, Other (No HJR) Neuro: Normal speech, Strength at 5/5 X4 ext, Cranial nerves 3-12 NL Psych/Mental Status: Mental status NL Review of Relevant I have reviewed the following items adam (where applicable) has been applied. Labs Laboratory Tests Test 07/05/18 05:59 White Blood Count 1.2 x10^3/uL (4.0-11.0) Red Blood Count 2.22 x10^6/uL (3.50-5.40) Hemoglobin 7.4 g/dL (12.0-15.5) Hematocrit 22.0 % (36.0-47.0) Mean Corpuscular Volume 99 fL (79-100) Mean Corpuscular Hemoglobin 33 pg (25-35) Mean Corpuscular Hemoglobin Concent 34 g/dL (31-37) Red Cell Distribution Width 22.2 % (11.5-14.5) Platelet Count 90 x10^3/uL (140-400) Neutrophils (%) (Auto) 30 % (31-73) Lymphocytes (%) (Auto) 48 % (24-48) Monocytes (%) (Auto) 20 % (0-9) Eosinophils (%) (Auto) 1 % (0-3) Basophils (%) (Auto) 1 % (0-3) Neutrophils # (Auto) 0.4 x10^3uL (1.8-7.7) Lymphocytes # (Auto) 0.6 x10^3/uL (1.0-4.8) Monocytes # (Auto) 0.3 x10^3/uL (0.0-1.1) Eosinophils # (Auto) 0.0 x10^3/uL (0.0-0.7) Basophils # (Auto) 0.0 x10^3/uL (0.0-0.2) Segmented Neutrophils % 37 % (35-66) Lymphocytes % 46 % (24-48) Monocytes % 16 % (0-10) Eosinophils % 1 % (0-5) Toxic Granulation Present Platelet Estimate Decreased (ADEQUATE) Large Platelets Occ Polychromasia Mod Poikilocytosis Slight Basophilic Stippling Present Anisocytosis Mod Macrocytosis Present Ovalocytes Occ Sodium Level 138 mmol/L (136-145) Potassium Level 4.8 mmol/L (3.5-5.1) Chloride Level 106 mmol/L (98-107) Carbon Dioxide Level 27 mmol/L (21-32) Anion Gap 5 (6-14) Blood Urea Nitrogen 19 mg/dL (7-20) Creatinine 0.8 mg/dL (0.6-1.0) Estimated GFR (Cockcroft-Gault) 71.3 BUN/Creatinine Ratio 24 (6-20) Glucose Level 94 mg/dL (70-99) Calcium Level 8.5 mg/dL (8.5-10.1) Total Bilirubin 0.3 mg/dL (0.2-1.0) Aspartate Amino Transf (AST/SGOT) 14 U/L (15-37) Alanine Aminotransferase (ALT/SGPT) 16 U/L (14-59) Alkaline Phosphatase 71 U/L (46-116) Total Protein 6.0 g/dL (6.4-8.2) Albumin 2.9 g/dL (3.4-5.0) Albumin/Globulin Ratio 0.9 (1.0-1.7) Microbiology 07/02/18 Blood Culture - Preliminary, Resulted NO GROWTH AFTER 3 DAYS... Medications Current Medications Ceftriaxone Sodium 1 gm/ Sodium Chloride 50 ml @ 100 mls/hr 1X ONCE IV Last administered on 07/02/18at 15:00; Start 07/02/18 at 15:45; Stop 07/02/18 at 16 :14; Status DC Sodium Chloride 50 ml @ As Directed STK-MED ONCE .ROUTE ; Start 07/02/18 at 15: 59; Stop 07/02/18 at 16:00; Status DC Ceftriaxone Sodium (Rocephin) 1 gm STK-MED ONCE IV ; Start 07/02/18 at 15:59; Stop 07/02/18 at 16:00; Status DC Sodium Chloride 1,000 ml @ 1,000 mls/hr Q1H IV Last administered on at 21:40; Start 07/02/18 at 19:00; Stop 07/02/18 at 19:59; Status DC Sodium Chloride 1,000 ml @ 150 mls/hr Q6H40M IV Last administered on at 00:32; Start 07/02/18 at 19:00; Stop 07/03/18 at 01:39; Status DC Acetaminophen (Tylenol) 1,000 mg PRN TID PRN PO PAIN; Start 07/02/18 at 20:45 Dexamethasone (Decadron) 32 mg DAILY PO ; Start 07/03/18 at 09:00; Stop at 07:00; Status DC Lisinopril (Prinivil) 10 mg BID PO Last administered on 07/05/18 22:03; Start 07/02/18 at 21:00 Allopurinol (Zyloprim) 100 mg DAILY PO Last administered on 07/05/18 08:16; Start 07/03/18 at 09:00 Aspirin (Children'S Aspirin) 81 mg DAILYWBKFT PO Last administered on 08:17; Start 07/03/18 at 08:00 Enoxaparin Sodium (Lovenox 100mg Syringe) 90 mg Q12HR SQ Last administered on 07/05/18 22:03; Start 07/02/18 at 21:00 Isosorbide Mononitrate (Imdur) 60 mg DAILY PO Last administered on 07/05/18 08:15; Start 07/03/18 at 09:00 Metoprolol Tartrate (Lopressor) 50 mg BID PO Last administered on 07/05/18 22 :02; Start 07/02/18 at 21:00 Ondansetron HCl (Zofran Odt) 4 mg PRN Q8HRS PRN PO NAUSEA/VOMITING; Start at 21:15 Polyethylene Glycol (miraLAX) 17 gm DAILY PO Last administered on 07/05/18 09 :00; Start 07/03/18 at 09:00 Potassium Chloride (Klor-Con) 20 meq BIDWMEALS PO Last administered on 17:00; Start 07/03/18 at 08:00 Prochlorperazine Maleate (Compazine) 10 mg PRN Q6HRS PRN PO NAUSEA/VOMITING; Start 07/02/18 at 21:15 Spironolactone (Aldactone) 25 mg DAILY PO Last administered on 07/05/18 08:22 ; Start 07/03/18 at 09:00 Sulfasalazine (Azulfidine) 500 mg BID PO Last administered on 07/05/18 22:03 ; Start 07/02/18 at 21:00 Temazepam (Restoril) 15 mg QHS PO Last administered on 07/05/18 22:03; Start 07/02/18 at 21:00 Levothyroxine Sodium (Synthroid) 112 mcg DAILY06 PO Last administered on 10/29/ 18at 22:03; Start 07/04/18 at 06:00 Tbo-Filgrastim (Granix) 480 mcg QHS ONCE SQ Last administered on 07/05/18at 22 :08; Start 07/05/18 at 21:00; Stop 07/05/18 at 21:01; Status DC Active Scripts Active Reported Temazepam 15 Mg Capsule 1 Cap PO QHS Sulfazine Ec (Sulfasalazine) 500 Mg Tablet.dr 500 Mg PO BID Spironolactone 50 Mg Tablet 0.5 Tab PO DAILY Prochlorperazine Maleate 10 Mg Tablet 1 Tab PO PRN Q6HRS PRN Potassium Chloride 20 Meq Tablet.er 20 Meq PO BIDWMEALS Zofran (Ondansetron Hcl) 8 Mg Tablet 8 Mg PO PRN Q8HRS Miralax (Polyethylene Glycol 3350) 17 Gm Powd.pack 1 Packet PO DAILY Metoprolol Tartrate 50 Mg Tablet 1 Tab PO BID Lisinopril 10 Mg Tablet 1 Tab PO BID Lidocaine-Prilocaine Cream (Lidocaine/Prilocaine) 30 Gm Cream..g. 1 Keiko TP UD Isosorbide Mononitrate Er (Isosorbide Mononitrate) 60 Mg Tab.er.24h 1 Tab PO DAILY Lasix (Furosemide) 80 Mg Tablet 80 Mg PO BID94 Lovenox (Enoxaparin Sodium) 40 Mg/0.4 Ml Disp.syrin 0.92 Mg SQ BID Dexamethasone 4 Mg Tablet 8 Tab PO DAILY Aspirin Ec (Aspirin) 81 Mg Tablet.dr 1 Tab PO DAILY Allopurinol 100 Mg Tablet 1 Tab PO DAILY Tylenol (Acetaminophen) 325 Mg Tablet 1,000 Mg PO PRN TID PRN Vitals/I & O Vital Sign - Last 24 Hours 07/05/18 07/05/18 07/05/18 07/05/18 12:20 15:00 20:00 20:00 Temp 98.0 97.3 97.8 Pulse 72 82 92 Resp 20 18 19 B/P (MAP) 110/72 (85) 95/60 (72) 120/72 (88) 112/69 (83) 95/63 (74) Pulse Ox 100 95 95 O2 Delivery Nasal Cannula Nasal Cannula Nasal Cannula Nasal Cannula O2 Flow Rate 3.0 3.0 3.0 3.0 07/05/18 07/05/18 07/05/1807/06/18 22:02 22:03 23:00 05:00 Temp 98.0 Pulse 92 92 84 79 Resp 18 17 B/P (MAP) 120/72 120/72 123/71 (88) 92/52 (65) Pulse Ox 96 98 O2 Delivery Nasal Cannula Nasal Cannula O2 Flow Rate 3.0 3.0 Intake and Output 07/05/18 07/05/18 07/06/18 15:00 23:00 07:00 Intake Total 440 ml 1300 ml 200 ml Output Total 700 ml 250 ml Balance -260 ml 1050 ml 200 ml SRIRAM JOHANSEN MD 07/06/18 2316: PROGRESS NOTES Review of Relevant Pt. seen and examined. Reviewed [facility] records - she was receiving IV Lasix infusions. Patient currently appears euvolemic. She has chronic lower ext lymphedema Check BNP and if not significantly elevated, plan for continued diuresis to keep euvolemic. Thanks. ALINA FREITAS APRN Jul 06, 2018 08:26 SRIRAM JOHANSEN MD Jul 06, 2018 23:16
--- NOTE | 2018-07-06 08:34 | RAD ---
Bilateral lower extremity venous doppler ultrasound History: Recent pulmonary embolism Comparison: None Findings: Multiple grayscale, color, and duplex spectral analysis sonographic images were acquired of the bilateral lower extremity veins to evaluate for the presence of DVT. There is normal phasicity. Normal compression, color-flow, and augmentation is demonstrated from the bilateral common femoral to the popliteal veins. There is normal color flow of the proximal greater saphenous and profunda femoris veins. There is normal color flow of segments of the calf veins. Impression: 1. There is no evidence of deep venous thrombosis from the bilateral common femoral to popliteal veins. Electronically signed by: Fredrick Wheatley MD (07/06/2018 8:30 AM) [id number]
[2018-07-06] MEDS: ALLOPURINOL 100 MG TABLET. PO SCH (08:37)
[2018-07-06] MEDS: ASPIRIN 81 MG TAB.CHEW PO SCH (08:38)
[2018-07-06] MEDS: sulfaSALAzine 500 MG TABLET PO SCH ×2 (08:38→20:51)
[2018-07-06] MEDS: ENOXAPARIN ** NOTE DOSE ** SYRINGE SQ SCH ×2 (08:39→20:55)
[2018-07-06] MEDS: ISOSORBIDE MONONITRATE ER 30 MG TAB.ER.24H PO SCH (09:00)
[2018-07-06] MEDS: POLYETHYLENE GLYCOL 3350 17 GM PACKET. PO SCH (09:00)
[2018-07-06] MEDS: SPIRONOLACTONE 25 MG TABLET PO SCH (09:00)
[2018-07-06] MEDS: METOPROLOL TART IMMED RELEASE 50 MG TABLET PO SCH ×2 (09:00→20:52)
[2018-07-06] MEDS: LISINOPRIL 5 MG TABLET. PO SCH ×2 (09:00→20:52)
[2018-07-06 11:07] LABS: BASO % 1 % (0-3); EOS % 1 % (0-3); HEMATOCRIT 24.3 % (36.0-47.0); HEMOGLOBIN 8.1 g/dL (12.0-15.5); LYMPH # 0.4 x10^3/uL (1.0-4.8); LYMPH % 29 % (24-48); MEAN CORPUSCULAR HEMOGLOBIN 33 pg (25-35); MEAN CORPUSCULAR HGB CONC 33 g/dL (31-37); MEAN CORPUSCULAR VOLUME 100 fL (79-100); MONO # 0.3 x10^3/uL (0.0-1.1); MONO % 28 % (0-9); NEUT # 0.5 x10^3uL (1.8-7.7); NEUT % 43 % (31-73); PLATELET COUNT 87 x10^3/uL (140-400); RED BLOOD COUNT 2.44 x10^6/uL (3.50-5.40); RED CELL DISTRIBUTION WIDTH 23.1 % (11.5-14.5)
[2018-07-06 11:10] LABS: CALCIUM 8.7 mg/dL (8.5-10.1); CREATININE 0.8 mg/dL (0.6-1.0); GFR 71.3; POTASSIUM 4.8 mmol/L (3.5-5.1); WHITE BLOOD COUNT 1.2 x10^3/uL (4.0-11.0)
[2018-07-06] MEDS: TEMAZEPAM 15 MG CAPSULE PO SCH (20:52)
[2018-07-07] MEDS: LEVOTHYROXINE 112 MCG TABLET PO SCH (06:05)
[2018-07-07 06:07] LABS: HEMATOCRIT 23.1 % (36.0-47.0); HEMOGLOBIN 7.8 g/dL (12.0-15.5); RED BLOOD COUNT 2.34 x10^6/uL (3.50-5.40); RED CELL DISTRIBUTION WIDTH 23.8 % (11.5-14.5)
[2018-07-07 06:12] LABS: CALCIUM 8.7 mg/dL (8.5-10.1); CREATININE 0.8 mg/dL (0.6-1.0); GFR 71.3; POTASSIUM 4.6 mmol/L (3.5-5.1)
[2018-07-07 06:16] VITALS: BP 96/50
--- NOTE | 2018-07-07 07:19 | PN ---
DATE: 07/06/2018 SUBJECTIVE: The patient is sitting on the edge of the bed comfortably in no apparent distress. She did complain of runny nose and sneezing, but denied any shortness of breath, orthopnea, or paroxysmal nocturnal dyspnea. Denied any dizziness, lightheadedness, or vertigo. We did repeat her lab work and her white cell count still low at 1.2 and platelets slightly lower at 87. I did speak with Dr. Jones, her oncologist, who recommended treating her with Neupogen. Unfortunately, it was not available yesterday and she should receive that today. Her weight is up to 198, which is about 13 pounds higher than what her health services information specialist wondered her to be. She did receive around 120 mg of Lasix on 07/01/2018 as an infusion at [facility]. PHYSICAL EXAMINATION: GENERAL: When I examined her this morning, she looked pale, but no jaundice or cyanosis. No lymphadenopathy. No thyromegaly. No jugular venous distention. No limb edema. VITAL SIGNS: Her heart rate was 79, blood pressure was 92/52, temperature was 98, respiratory rate was 17 and oxygen saturation was 98% on 3 liters of oxygen by nasal cannula. HEAD, EYES, EARS, NOSE, AND THROAT: Showed normocephalic, atraumatic. NECK: Supple. HEART: Showed normal first and second heart sounds with no gallop, rub, or murmur. CHEST: Clear to auscultation. No crepitation or rhonchi. ABDOMEN: Distended, soft, nontender. NEUROLOGIC: She is awake, alert, responding appropriately. Her cranial nerves are intact. She moves extremities without difficulty. Her intake over the last 24 hours was 320, output was 1650. LABORATORY DATA: As of this morning, her white cell count was 1200, hemoglobin 8.1, hematocrit 24, MCV 100, and platelet count of 87,000 with manual differential showing 43% neutrophils, 29% lymphocytes, and 28% monocytes. Her serum sodium was 137, potassium 4.8, chloride 105, bicarbonate 27, anion gap of 5, BUN 18, creatinine 0.8, estimated GFR was 71 mL per minute. Her glucose was 97, calcium was 8.7. Total bilirubin, AST, ALT, alkaline phosphatase were normal. Her total protein was 6, albumin 2.9. Urinalysis was unremarkable. She did have a CT scan of the head, which showed no evidence of acute intracranial hemorrhage or mass effect, partially visualized left maxillary sinus disease, nonspecific, and she has chronic intracranial finding including mild prominence of ventricles and sulci compatible with mild atrophy, mild arterial calcification compatible with atherosclerotic disease, subtle, white matter hypodensities, nonspecific, but likely due to chronic small vessel ischemic disease. Plan is to basically cut down her lisinopril and metoprolol as her blood pressure is low. She has received her Neupogen today and we will repeat all her lab work tomorrow. Unfortunately, she has gained about 12-13 pounds and her dry weight should be 180-[address] Velazco, her health services information specialist. ASSESSMENT: 1. Neutropenia for which we started her on Neupogen as recommended by her oncologist: 2. Syncope, likely because of hypovolemia. She has gained about 13 pounds and unfortunately she continued to be somewhat orthostatic, so her lisinopril and metoprolol were decreased. 2. Acute kidney injury, resolved. Her BUN is down from 45 to 18 and her creatinine came down from 1.5 to 0.8, which her baseline. 3. She has stage 4 ovarian cancer for which she received Taxol and carboplatin chemotherapy on 06/24/2018. 4. Pancytopenia, most probably secondary to chemotherapy. 5. Hypothyroidism for which she is on Synthroid. 6. Severe protein-calorie malnutrition, serum albumin is only 2.9 g/dL. ALFRED BAEZA MD DR: ALLAN/que JOB#: [id number] / [id number]
[2018-07-07 08:25] VITALS: BP 110/72
[2018-07-07] MEDS: ASPIRIN 81 MG TAB.CHEW PO SCH (08:25)
[2018-07-07] MEDS: ALLOPURINOL 100 MG TABLET. PO SCH (08:25)
[2018-07-07] MEDS: POLYETHYLENE GLYCOL 3350 17 GM PACKET. PO SCH (08:26)
[2018-07-07] MEDS: ENOXAPARIN ** NOTE DOSE ** SYRINGE SQ SCH (08:28)
[2018-07-07] MEDS: SPIRONOLACTONE 25 MG TABLET PO SCH (08:38)
[2018-07-07] MEDS: METOPROLOL TART IMMED RELEASE 50 MG TABLET PO SCH (08:44)
[2018-07-07] MEDS: LISINOPRIL 5 MG TABLET. PO SCH (08:44)
--- NOTE | 2018-07-07 09:19 | PDOC ---
ALINA FREITAS DIRECTOR OF PLANNING 07/07/18 0919: PROGRESS NOTES Diagnosis Problem Problems Medical Problems: (1) Anemia Status: Acute (2) CHF (congestive heart failure) Status: Acute (3) Leukopenia Status: Acute (4) Ovarian cancer Status: Acute (5) Renal insufficiency Status: Acute (6) Sepsis Status: Acute (7) Syncope Status: Acute Assessment Problems Medical Problems: (1) Anemia Status: Acute (2) CHF (congestive heart failure) Status: Acute (3) Leukopenia Status: Acute (4) Ovarian cancer Status: Acute (5) Renal insufficiency Status: Acute (6) Sepsis Status: Acute (7) Syncope Status: Acute 1. syncope likely secondary to hypovolemia and orthostatic hypotension. Currently off lasix , s/p IV fluids. Intermittent mild hypotension. Re schedule Beta neri and ACEI to improve consistent pressure control. Will resume low dose lasix and she is to follow up with primary blasting entry specialist on Thursday as scheduled. compression hose when out of bed. 2. recent PE - RV WNL. venous duplex neg. Continue lovenox for PE until instructed otherwise by hematology oncology. 3. chronic diastolic heart failure - remains compensated currently BNP doubled but still not significantly elevated. will resume low dose lasix. 4. hypertensive heart disease with mild LVH and mild PHTN - blood pressure intermittently low. Change lisinopril to daily at HS, change metoprolol to ER in the am. 5. chronic respiratory insufficiency on home o2 - stable 6. mild CAD with recent negative MPI - angina free 7. metastatic CA - chemo with RUST Subjective feeling better, no dyspnea, no increase in lasix, no chest pain, no lightheadedness or recurrent syncope. "ready to go home:" Objective Vital Signs Date Time Temp Pulse Resp B/P (MAP) Pulse Ox O2 Delivery O2 Flow Rate FiO2 07/07/18 08:44 102 110/72 07/07/18 08:00 Nasal Cannula 3.0 07/07/18 06:16 98.3 20 99 Intake and Output 07/07/18 07:00 Intake Total 800 ml Output Total 725 ml Balance 75 ml Intake Oral 800 ml Output Urine Total 725 ml # Voids 5 Abdomen: Normal bowel sounds, Soft, No tenderness Heart: Normal S1, Normal S2, Other (no gallops, clicks or rubs) Extremities: Other (1+ edema unchanged bilateral lower extremities) General: Alert, Oriented X3, Cooperative, No acute distress HEENT: EOMI, Mucous membr. moist/pink Lungs: Clear to auscultation Neck: No JVD, +2 carotid pulse wo bruit, Other (No HJR) Neuro: Normal speech, Strength at 5/5 X4 ext Psych/Mental Status: Mental status NL, Mood NL Review of Relevant I have reviewed the following items adam (where applicable) has been applied. Labs Laboratory Tests Test 07/06/18 10:57 07/07/18 05:45 White Blood Count 1.2 x10^3/uL (4.0-11.0) 2.0 x10^3/uL (4.0-11.0) Red Blood Count 2.44 x10^6/uL (3.50-5.40) 2.34 x10^6/uL (3.50-5.40) Hemoglobin 8.1 g/dL (12.0-15.5) 7.8 g/dL (12.0-15.5) Hematocrit 24.3 % (36.0-47.0) 23.1 % (36.0-47.0) Mean Corpuscular Volume 100 fL (79-100) 99 fL (79-100) Mean Corpuscular Hemoglobin 33 pg (25-35) 34 pg (25-35) Mean Corpuscular Hemoglobin Concent 33 g/dL (31-37) 34 g/dL (31-37) Red Cell Distribution Width 23.1 % (11.5-14.5) 23.8 % (11.5-14.5) Platelet Count 87 x10^3/uL (140-400) 92 x10^3/uL (140-400) Neutrophils (%) (Auto) 43 % (31-73) Lymphocytes (%) (Auto) 29 % (24-48) Monocytes (%) (Auto) 28 % (0-9) Eosinophils (%) (Auto) 1 % (0-3) Basophils (%) (Auto) 1 % (0-3) Neutrophils # (Auto) 0.5 x10^3uL (1.8-7.7) Lymphocytes # (Auto) 0.4 x10^3/uL (1.0-4.8) Monocytes # (Auto) 0.3 x10^3/uL (0.0-1.1) Eosinophils # (Auto) 0.0 x10^3/uL (0.0-0.7) Basophils # (Auto) 0.0 x10^3/uL (0.0-0.2) Sodium Level 137 mmol/L (136-145) 129 mmol/L (136-145) Potassium Level 4.8 mmol/L (3.5-5.1) 4.6 mmol/L (3.5-5.1) Chloride Level 105 mmol/L (98-107) 98 mmol/L (98-107) Carbon Dioxide Level 27 mmol/L (21-32) 24 mmol/L (21-32) Anion Gap 5 (6-14) 7 (6-14) Blood Urea Nitrogen 18 mg/dL (7-20) 18 mg/dL (7-20) Creatinine 0.8 mg/dL (0.6-1.0) 0.8 mg/dL (0.6-1.0) Estimated GFR (Cockcroft-Gault) 71.3 71.3 Glucose Level 97 mg/dL (70-99) 110 mg/dL (70-99) Calcium Level 8.7 mg/dL (8.5-10.1) 8.7 mg/dL (8.5-10.1) Uric Acid 6.3 mg/dL (2.6-6.0) BU-Daq-E-Type Natriuretic Peptide 401 pg/mL (0-124) Microbiology 07/02/18 Blood Culture - Preliminary, Resulted NO GROWTH AFTER 4 DAYS... Medications Current Medications Ceftriaxone Sodium 1 gm/ Sodium Chloride 50 ml @ 100 mls/hr 1X ONCE IV Last administered on 07/02/18at 15:00; Start 07/02/18 at 15:45; Stop 07/02/18 at 16 :14; Status DC Sodium Chloride 50 ml @ As Directed STK-MED ONCE .ROUTE ; Start 07/02/18 at 15: 59; Stop 07/02/18 at 16:00; Status DC Ceftriaxone Sodium (Rocephin) 1 gm STK-MED ONCE IV ; Start 07/02/18 at 15:59; Stop 07/02/18 at 16:00; Status DC Sodium Chloride 1,000 ml @ 1,000 mls/hr Q1H IV Last administered on 21:40; Start 07/02/18 at 19:00; Stop 07/02/18 at 19:59; Status DC Sodium Chloride 1,000 ml @ 150 mls/hr Q6H40M IV Last administered on at 00:32; Start 07/02/18 at 19:00; Stop 07/03/18 at 01:39; Status DC Acetaminophen (Tylenol) 1,000 mg PRN TID PRN PO PAIN Last administered on 07/06 20:56; Start 07/02/18 at 20:45 Dexamethasone (Decadron) 32 mg DAILY PO ; Start 07/03/18 at 09:00; Stop at 07:00; Status DC Lisinopril (Prinivil) 10 mg BID PO Last administered on 07/05/18 22:03; Start 07/02/18 at 21:00; Stop 07/06/18 at 08:28; Status DC Allopurinol (Zyloprim) 100 mg DAILY PO Last administered on 07/07/18 08:25; Start 07/03/18 at 09:00 Aspirin (Children'S Aspirin) 81 mg DAILYWBKFT PO Last administered on 08:25; Start 07/03/18 at 08:00 Enoxaparin Sodium (Lovenox 100mg Syringe) 90 mg Q12HR SQ Last administered on 07/07/18 08:28; Start 07/02/18 at 21:00 Isosorbide Mononitrate (Imdur) 60 mg DAILY PO Last administered on 07/05/18 08:15; Start 07/03/18 at 09:00 Metoprolol Tartrate (Lopressor) 50 mg BID PO Last administered on 07/06/18 20 :52; Start 07/02/18 at 21:00 Ondansetron HCl (Zofran Odt) 4 mg PRN Q8HRS PRN PO NAUSEA/VOMITING; Start at 21:15 Polyethylene Glycol (miraLAX) 17 gm DAILY PO Last administered on 07/07/18 08 :26; Start 07/03/18 at 09:00 Potassium Chloride (Klor-Con) 20 meq BIDWMEALS PO Last administered on 17:00; Start 07/03/18 at 08:00 Prochlorperazine Maleate (Compazine) 10 mg PRN Q6HRS PRN PO NAUSEA/VOMITING; Start 07/02/18 at 21:15 Spironolactone (Aldactone) 25 mg DAILY PO Last administered on 07/07/18 08:38 ; Start 07/03/18 at 09:00 Sulfasalazine (Azulfidine) 500 mg BID PO Last administered on 07/06/18 20:51 ; Start 07/02/18 at 21:00 Temazepam (Restoril) 15 mg QHS PO Last administered on 07/06/18 20:52; Start 07/02/18 at 21:00 Levothyroxine Sodium (Synthroid) 112 mcg DAILY06 PO Last administered on 06:05; Start 07/04/18 at 06:00 Tbo-Filgrastim (Granix) 480 mcg QHS ONCE SQ Last administered on 07/05/18 22 :08; Start 07/05/18 at 21:00; Stop 07/05/18 at 21:01; Status DC Lisinopril (Prinivil) 5 mg BID PO Last administered on 07/06/18 20:52; Start 07/06/18 at 09:00 Active Scripts Active Reported Temazepam 15 Mg Capsule 1 Cap PO QHS Sulfazine Ec (Sulfasalazine) 500 Mg Tablet.dr 500 Mg PO BID Spironolactone 50 Mg Tablet 0.5 Tab PO DAILY Prochlorperazine Maleate 10 Mg Tablet 1 Tab PO PRN Q6HRS PRN Potassium Chloride 20 Meq Tablet.er 20 Meq PO BIDWMEALS Zofran (Ondansetron Hcl) 8 Mg Tablet 8 Mg PO PRN Q8HRS Miralax (Polyethylene Glycol 3350) 17 Gm Powd.pack 1 Packet PO DAILY Metoprolol Tartrate 50 Mg Tablet 1 Tab PO BID Lisinopril 10 Mg Tablet 1 Tab PO BID Lidocaine-Prilocaine Cream (Lidocaine/Prilocaine) 30 Gm Cream..g. 1 Keiko TP UD Isosorbide Mononitrate Er (Isosorbide Mononitrate) 60 Mg Tab.er.24h 1 Tab PO DAILY Lasix (Furosemide) 80 Mg Tablet 80 Mg PO BID94 Lovenox (Enoxaparin Sodium) 40 Mg/0.4 Ml Disp.syrin 0.92 Mg SQ BID Dexamethasone 4 Mg Tablet 8 Tab PO DAILY Aspirin Ec (Aspirin) 81 Mg Tablet.dr 1 Tab PO DAILY Allopurinol 100 Mg Tablet 1 Tab PO DAILY Tylenol (Acetaminophen) 325 Mg Tablet 1,000 Mg PO PRN TID PRN Vitals/I & O Vital Sign - Last 24 Hours 07/06/18 07/06/18 07/06/18 07/06/18 11:31 11:32 11:33 15:00 Temp 98.2 98.7 Pulse 83 90 99 96 Resp 16 16 18 B/P (MAP) 106/63 (77) 103/66 (78) 114/70 (85) 138/71 (93) Pulse Ox 100 95 100 100 O2 Delivery Room Air Room Air Room Air Nasal Cannula O2 Flow Rate 3.0 07/06/18 07/06/18 07/06/18 07/06/18 19:37 19:39 20:52 20:52 Temp 98.8 Pulse 98 99 99 Resp 18 B/P (MAP) 115/73 (87) 121/73 121/73 Pulse Ox 99 O2 Delivery Nasal Cannula Nasal Cannula O2 Flow Rate 3.0 3.0 07/06/18 07/07/18 07/07/18 07/07/18 22:21 06:16 08:00 08:25 Temp 98.0 98.3 Pulse 89 88 102 Resp 20 20 B/P (MAP) 105/51 (69) 96/50 (65) 110/72 (85) Pulse Ox 94 99 O2 Delivery Nasal Cannula Nasal Cannula Nasal Cannula O2 Flow Rate 3.0 3.0 3.0 07/07/18 07/07/18 08:44 08:44 Pulse 102 102 B/P (MAP) 110/72 110/72 Intake and Output 07/06/18 07/06/18 07/07/18 15:00 23:00 07:00 Intake Total 600 ml 200 ml Output Total 200 ml 525 ml Balance 600 ml 0 ml -525 ml SRIRAM JOHANSEN MD 07/08/18 5309: PROGRESS NOTES Review of Relevant Pt. seen and examined. Agree with above ADMINISTRATIVE FELLOW note. Late entry for 07/07/2018. Thanks ALINA FREITAS DIRECTOR OF PLANNING Jul 07, 2018 09:19 SRIRAM JOHANSEN MD Jul 08, 2018 23:33
[2018-07-07] MEDS: sulfaSALAzine 500 MG TABLET PO SCH (09:35)
[2018-07-07] MEDS ORDERED: METOPROLOL SUCC 24HR ER 50 MG TAB.ER.24H. PO SCH (09:45)
[2018-07-07] MEDS ORDERED: FUROSEMIDE 20 MG TABLET PO SCH (10:00)
[2018-07-07 10:31] VITALS: BP 101/61
[2018-07-07 11:21] VITALS: BP 101/61
[2018-07-07] MEDS: ISOSORBIDE MONONITRATE ER 30 MG TAB.ER.24H PO SCH (11:21)
[2018-07-07] MEDS: POTASSIUM CHLORIDE 20 MEQ TABLET.ER. PO SCH (11:39)
[2018-07-07] MEDS ORDERED: METO50TA4 PO (11:44)
[2018-07-07] MEDS ORDERED: FURO-69 PO (11:44)
[2018-07-07] MEDS ORDERED: LISI-338 PO (11:44)
[2018-07-07] MEDS ORDERED: ACET325T9 PO (18:53)
[2018-07-07] MEDS ORDERED: ISOS60TA2 PO (18:53)
[2018-07-07] MEDS ORDERED: ASPI-612 PO (18:53)
[2018-07-07] MEDS ORDERED: TEMA15CA PO (18:53)
[2018-07-07] MEDS ORDERED: ALLO100T PO (18:53)
[2018-07-07] MEDS ORDERED: POTA20TA82 PO (18:53)
[2018-07-07] MEDS ORDERED: PROC10TA2 PO (18:53)
[2018-07-07] MEDS ORDERED: ONDA8TAB9 PO (18:53)
[2018-07-07] MEDS ORDERED: ENOX40DI SQ (18:53)
[2018-07-07] MEDS ORDERED: SULF500T36 PO (18:53)
[2018-07-07] MEDS ORDERED: SPIR50TA4 PO (18:53)
[2018-07-07] MEDS ORDERED: DEXA4TAB PO (18:53)
[2018-07-07] MEDS ORDERED: POLY17PO5 PO (18:53)
[2018-07-07] MEDS ORDERED: LIDO30CR TP (18:53)
[2018-07-07] MEDS ORDERED: LISINOPRIL 5 MG TABLET. PO SCH (21:00)
--- NOTE | 2018-07-07 21:25 | DS ---
DATE OF DISCHARGE: 07/07/2018 HISTORY OF PRESENT ILLNESS: The patient is a 67-year-old female patient, who was admitted with a recurrent syncopal episode. She apparently has metastatic ovarian cancer for which she received chemotherapy on 06/24/2018 and on 07/01/2018, she was seen at the infusion clinic with the Cardiology team and she received a total of 120 mg of Lasix over 3 hours, the clinical appeals reviewer would like to have her weight down to 185. Apparently, she had a syncopal episode on the day she was admitted. On the day she received an infusion of Lasix, she had a near syncope when she stood up from her commode and on Thursday, she reported a witnessed syncope. Her brother witnessed when she tried to stand up at home from an armed chair, became dizzy and fell back into the chair. Her brother reported that she was unresponsive for a few moments. No seizure activity, incontinence or postictal state. She was basically extensively investigated and was found to have severe neutropenia and also postural hypertension for which she received IV fluid. We held her Lasix as was getting 80 mg twice a day. I did contact Dr. Jones, her oncologist and she received Neupogen 480 mcg intramuscular IV on 07/05/2018. She has had no more syncopal episodes throughout her stay and as her blood pressure is low, we cut down her lisinopril to 5 mg only. We held her Lasix; however, this morning, her Lasix was started at 20 mg once a day. Her white cell count is trending upward and today, her white cell count was 2000. Her platelet count remained stable at around 92,000. When I examined her this morning, she was sitting comfortably on the edge of the bed, in no apparent respiratory distress. On questioning her, she denied any complaint. She has had no further episodes of syncope. She has been up and about, walking without assistance or assistive devices. The nursing staff did not voice any concern. The plan is for her to for her to keep her appointment with her clinical appeals reviewer on Thursday and we will fax all the lab work to her oncologist today before she gets discharged. PHYSICAL EXAMINATION: GENERAL: When I saw her this morning, she looked well and was clearly in no apparent respiratory distress. She was pale, but no jaundice, cyanosis, lymphadenopathy or thyromegaly. No jugular venous distention. No limb edema. VITAL SIGNS: Her heart rate was 100, blood pressure was 101/61, temperature was 97.8, respiratory rate was 18 and oxygen saturation was 96% on 3 liters of oxygen by nasal cannula. HEAD, EYES, EARS, NOSE AND THROAT: Showed normocephalic, atraumatic. NECK: Supple. HEART: Showed normal first and second heart sounds with no gallop, rub or murmur. CHEST: Clear to auscultation. No crepitation or rhonchi. ABDOMEN: Distended, soft, nontender. No guarding or rigidity. No organomegaly. Hernial orifices intact. Bowel sounds normal. NEUROLOGIC: She is awake, alert, responding appropriately. All cranial nerves intact. She moves extremities without difficulty. She ambulates without assistance or assistive devices. LABORATORY DATA: Her intake was 1940, output was 950. Her weight this morning was 192.5 pounds. LABORATORY DATA: As of this morning, her white cell count is up to 2000 from 1.2, hemoglobin was 7.8, hematocrit 23, MCV 99 and platelet count of 92,000. Her chemistry showed serum sodium is slightly down at 129, potassium 4.6, chloride 98, bicarbonate 24, anion gap of 7, BUN 18, creatinine 0.8, estimated GFR was 71 mL per minute. Her glucose was 110, calcium was 8.7. Her beta-natriuretic peptide was only 400. Her total protein was 6, albumin 2.9. DISCHARGE MEDICATIONS: She was discharged to continue on furosemide 20 mg once a day, lisinopril 5 mg once a day, metoprolol succinate 50 mg once a day, Tylenol 1000 mg p.o. t.i.d., allopurinol 100 mg once a day, aspirin 81 mg once a day, dexamethasone 8 mg p.o. daily when she is on chemotherapy. She is on Lovenox 90 mg subQ twice a day, isosorbide mononitrate 60 mg daily, lidocaine and prilocaine applied topically once a day, ondansetron 8 mg every 8 hours, polyethylene glycol 17 grams daily, potassium chloride 20 mEq twice a day, prochlorperazine maleate one tablet every 6 hours, spironolactone 25 mg once a day, sulfasalazine 500 mg twice a day and temazepam 15 mg at bedtime. FINAL DISCHARGE DIAGNOSES: 1. Neutropenia for which she is started on Neupogen as recommended by her oncologist and her white cell count is up from 1.2-2000. 2. Syncope, likely because of hypovolemia. She has gained about 13 pounds and unfortunately she continued to be somewhat orthostatic and her lisinopril and metoprolol were decreased. 3. Acute kidney injury, resolved. Her BUN is down from 45-18 and her creatinine ____ from 0.5-0.8. 4. She has stage 4 ovarian cancer for which he has had received Taxol and carboplatin chemotherapy on 06/24/2018. 5. Pancytopenia, most likely secondary to chemotherapy. 6. Hypothyroidism for which she is on Synthroid. 7. Moderate protein-calorie malnutrition with serum albumin of only 2.9 grams/dL. ALFRED BAEZA MD DR: ALLAN/que JOB#: [id number] / [id number]
== END 2018-07-07 13:00 | disposition home or self-care (01) | DRG 808 ==
LOC: ER 13:50 → 1 SOUTH 17:48
PROVIDERS: ADMIT Neuromusculoskeletal Medicine & OMM; ATTEND Neuromusculoskeletal Medicine & OMM
DX: D61.818 Other pancytopenia (principal); E43 Unspecified severe protein-calorie malnutrition; N17.9 Acute kidney failure, unspecified; C56.9 Malignant neoplasm of unspecified ovary; I13.0 Hypertensive heart and chronic kidney disease with heart failure and stage 1 through stage 4 chronic kidney disease, or unspecified chronic kidney disease; I50.32 Chronic diastolic (congestive) heart failure; E03.9 Hypothyroidism, unspecified; J32.0 Chronic maxillary sinusitis; N18.9 Chronic kidney disease, unspecified; J44.9 Chronic obstructive pulmonary disease, unspecified; Z86.711 Personal history of pulmonary embolism; Z68.35 Body mass index [BMI] 35.0-35.9, adult; Z85.43 Personal history of malignant neoplasm of ovary; Z99.81 Dependence on supplemental oxygen; Z79.899 Other long term (current) drug therapy
CPT/HCPCS: 36415; 70450; 71045; 80048; 80053; 81001; 83520; 83605; 83880; 84443; 84484; 84550; 85007; 85025; 85027; 86376; 87040; 93005; 93308; 93970; 96365; 96366; J0696; J1442; J1650; 99285-25; J7030